=== PATIENT | female | born 1940 | race Caucasian/White ===

== ENCOUNTER → 2016-10-04 | Outpatient (CLI) | payer MEDICARE | LOC: GMAM 17:42 | PROVIDERS: ATTEND Family Medicine | DX: M25.50 Pain in unspecified joint (principal); I10 Essential (primary) hypertension; E11.9 Type 2 diabetes mellitus without complications; E78.4 Other hyperlipidemia ==

== ENCOUNTER → 2016-10-19 | Outpatient (CLI) | payer MEDICARE ==
--- NOTE | 2016-10-19 15:46 | MAM ---
EXAM DESCRIPTION: Screening Mammogram,Bilateral CLINICAL HISTORY: 76 years, Female, Screening mammogram COMPARISON: None TECHNIQUE: CC and MLO digital mammograms with computer aided detection. FINDINGS: There are scattered fibroglandular densities. There is no dominant mass nor any suspicious microcalcifications. Benign microcalcifications are present. IMPRESSION: BIRAD CATEGORY: 2 BENIGN. Recommend routine screening mammography. Electronically signed by: Azael Sylvester MD 10/19/2016 3:45 PM [employer]
== END | disposition home or self-care (01) ==
LOC: MAMMO 13:49
PROVIDERS: ATTEND Family Medicine
DX: Z12.31 Encounter for screening mammogram for malignant neoplasm of breast (principal)

== ENCOUNTER → 2016-11-16 | Outpatient (CLI) | payer MEDICARE | END | disposition home or self-care (01) | LOC: GMAM 16:30 | PROVIDERS: ATTEND Family Medicine | DX: M10.00 Idiopathic gout, unspecified site (principal) ==

== ENCOUNTER → 2017-03-07 | Outpatient (CLI) | payer MEDICARE | LOC: GMAM 17:00 | PROVIDERS: ATTEND Family Medicine | DX: M10.00 Idiopathic gout, unspecified site (principal) ==

== ENCOUNTER → 2017-03-09 | Outpatient (CLI) | payer MEDICARE | LOC: GMAM 16:40 | PROVIDERS: ATTEND Family Medicine | DX: D64.9 Anemia, unspecified (principal) ==

== ENCOUNTER 2017-05-05 14:37 | Inpatient (IN) | payer MEDICARE, OTHER ==
--- NOTE | 2017-05-05 14:50 | ED.PDOC ---
History of Present Illness - General Chief Complaint: General Stated Complaint: sob Time Seen by Provider: 05/05/17 14:49 Source: patient Exam Limitations: no limitations - History of Present Illness Initial Comments: Alee Gastelum 77 y/o female stated that she had been having gradually worsening sob for the last 4 weeks and had non productive cough and nasal congestion for the last 2 weeks .She also had exertional dyspnea with walking 6- 7 steps from her bed to the bathroom.Denies chest pains dizziness has home 02 uses it as needed.Has history of asthma.Unable to make her appointment with marine cargo specialist today her car broke down. Timing/Duration: getting worse, other - 4 weeks Severity: moderate Activities at Onset: none Possible Cause: other - asthma Improving Factors: nothing Worsening Factors: nothing Associated Symptoms: other - exertional dyspnea Respiratory Risk Factors: exposure to allergen Allergies/Adverse Reactions: Allergies NO KNOWN ALLERGY Allergy (Verified 05/05/17 14:54) Home Medications: Ambulatory Orders ALPRAZolam [Xanax] 0.25 mg PO BEDTIME 05/05/17 Aclidinium [place] [Tudorza Pressair] 400 mcg INH DAILY 05/05/17 Albuterol Sulfate [Proair Hfa] 108 mcg INH Q4H 05/05/17 Allopurinol [Zyloprim] 100 mg PO DAILY 05/05/17 Atorvastatin Calcium [Lipitor] 20 mg PO BEDTIME 05/05/17 Celecoxib 200 mg PO DAILY 05/05/17 Chlorthalidone 25 mg PO DAILY 05/05/17 Cholecalciferol [Vitamin D3] 2,000 unit PO DAILY 05/05/17 Citalopram Hydrobromide 20 mg PO DAILY 05/05/17 Fluticasone/Salmeterol 500/50 [Advair Diskus] 1 puff INH BID 05/05/17 Ipratropium [place] Nebs [Atrovent NEBS] 0.5 mg INH QID PRN 05/05/17 Lisinopril 20 mg PO DAILY 05/05/17 Pregabalin [Lyrica] 150 mg PO BID 05/05/17 Vitamins W/ Iron Carb [One A Day Womens 28-0.8-235 mg] 1 cap PO DAILY 05/05/17 Umeclidinium [place] [Incruse Ellipta] 62.5 mcg INH DAILY 05/05/17 metFORMIN HCL [Glucophage] 1,000 mg PO BID 05/05/17 traZODone HCL [Desyrel] 100 mg PO BEDTIME 05/05/17 Review of Systems - Review of Systems Constitutional: States: no symptoms reported EENTM: States: see HPI Respiratory: States: see HPI Cardiology: States: see HPI Gastrointestinal/Abdominal: States: no symptoms reported Genitourinary: States: no symptoms reported Musculoskeletal: States: neck pain - chronic Past Medical History (General) - Patient Medical History Hx Asthma: Yes Hx Congestive Heart Failure: Yes Hx Other PMH: Yes - 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 Surgical History: tonsillectomy, other - hysterectomy,c-spine - Social History Hx Tobacco Use: Yes - quit 20 years ago Hx Physical Abuse: No Hx Emotional Abuse: No Hx Suspected Abuse: No - Activities of Daily Living Patient Lives Alone: No - sister Grooming Ability: Independent Eating (Feeding) Ability: Independent Toileting Ability: Independent - Female History Patient is a Female of Child Bearing Age (10 -59 yrs old): No - postmenopausal Family Medical History - Family History Mother Family History: No Known Living Status: Hx Family Congestive Heart Failure: Yes - dad Hx Family;Other: parents/sister-pulmonary tb-treated Physical Exam - Physical Exam General Appearance: Alert, Anxious, No apparent distress Eyes, Ears, Nose, Throat Exam: PERRL/EOMI, normal ENT inspection, pharynx normal Neck: non-tender, supple Respiratory: decreased breath sounds, rales - bases Cardiovascular/Chest: regular rate, rhythm, no gallop, no murmur Peripheral Pulses: radial,right: 1+, radial,left: 1+ Gastrointestinal/Abdominal: non tender, soft, no organomegaly Extremity: non-tender, no pedal edema, no calf tenderness Neurologic: alert, oriented x 3 Skin Exam: normal color, warm/dry Lymphatic: no adenopathy Progress - Progress Progress: 05/05/17 17:32 Vital Signs - 8 hr 05/05/17 05/05/17 05/05/17 14:40 14:45 15:35 Temperature 99.4 F Pulse Rate [ 72 64 Apical] Respiratory 28 H 28 H 28 H Rate Blood Pressure 172/83 156/96 [Left Arm] O2 Sat by Pulse 92 L 95 Oximetry 05/05/17 05/05/17 05/05/17 15:40 16:30 16:35 Temperature Pulse Rate [ 93 H 61 65 Apical] Respiratory 22 22 22 Rate Blood Pressure 113/65 126/79 126/79 [Left Arm] O2 Sat by Pulse 93 L 96 96 Oximetry 05/05/17 17:06 Temperature Pulse Rate [ 67 Apical] Respiratory 22 Rate Blood Pressure 155/52 [Left Arm] O2 Sat by Pulse 97 Oximetry - Results/Orders Results/Orders: Laboratory Tests 05/05/17 05/05/17 05/05/17 13:07 13:07 13:07 WBC 6.4 RBC 3.49 L Hgb 9.4 L Hct 29.7 L MCV 85.1 MCH 26.9 L MCHC 31.6 L RDW 17.0 H Plt Count 257 MPV 9.9 Absolute Neuts (auto) 4.60 Absolute Lymphs (auto) 1.10 Absolute Monos (auto) 0.40 Absolute Eos (auto) 0.20 Absolute Basos (auto) 0.00 Neutrophils % 71.7 Lymphocytes % 17.4 L Monocytes % 6.5 Eosinophils % 3.8 Basophils % 0.6 D-Dimer, Quantitative 292 H* Sodium 139 Potassium 4.5 Chloride 102 Carbon Dioxide 28 Anion Gap 13.5 BUN 16 Creatinine 1.07 BUN/Creatinine Ratio 15.0 Random Glucose 159 H Serum Osmolality 282.1 Calcium 9.1 Total Bilirubin 0.5 AST 19 ALT < 8 L Alkaline Phosphatase 63 Troponin I B-Natriuretic Peptide 499.0 H* Serum Total Protein 7.0 Albumin 3.5 Globulin 3.5 Albumin/Globulin Ratio 1.0 L Urine Color Urine Appearance Urine pH Ur Specific [place] Urine Protein Urine Glucose (UA) Urine Ketones Urine Blood Urine Nitrite Urine Bilirubin Urine Urobilinogen Ur Leukocyte Esterase Urine RBC Urine WBC Ur Epithelial Cells Urine Bacteria 05/05/17 05/05/17 13:07 15:20 WBC RBC Hgb Hct MCV MCH MCHC RDW Plt Count MPV Absolute Neuts (auto) Absolute Lymphs (auto) Absolute Monos (auto) Absolute Eos (auto) Absolute Basos (auto) Neutrophils % Lymphocytes % Monocytes % Eosinophils % Basophils % D-Dimer, Quantitative Sodium Potassium Chloride Carbon Dioxide Anion Gap BUN Creatinine BUN/Creatinine Ratio Random Glucose Serum Osmolality Calcium Total Bilirubin AST ALT Alkaline Phosphatase Troponin I 0.02 B-Natriuretic Peptide Serum Total Protein Albumin Globulin Albumin/Globulin Ratio Urine Color Yellow Urine Appearance Clear Urine pH 7.5 Ur Specific [place] 1.020 Urine Protein 30 Urine Glucose (UA) 100 H Urine Ketones Negative Urine Blood Trace-intact H Urine Nitrite Negative Urine Bilirubin Negative Urine Urobilinogen 0.2 Ur Leukocyte Esterase Negative Urine RBC 0-1 Urine WBC 1-3 Ur Epithelial Cells 1-3 Urine Bacteria Rare Laboratory Tests 05/05/17 05/05/17 05/05/17 13:07 13:07 13:07 WBC 6.4 RBC 3.49 L Hgb 9.4 L Hct 29.7 L MCV 85.1 MCH 26.9 L MCHC 31.6 L RDW 17.0 H Plt Count 257 MPV 9.9 Absolute Neuts (auto) 4.60 Absolute Lymphs (auto) 1.10 Absolute Monos (auto) 0.40 Absolute Eos (auto) 0.20 Absolute Basos (auto) 0.00 Neutrophils % 71.7 Lymphocytes % 17.4 L Monocytes % 6.5 Eosinophils % 3.8 Basophils % 0.6 D-Dimer, Quantitative 292 H* pCO2 pO2 HCO3 ABG pH ABG O2 Saturation ABG Base Excess ABG Deoxyhemoglobin Oxyhemoglobin % Carboxyhemoglobin % Methemoglobin % Sat Calc Total Hemoglobin Sodium 139 Potassium 4.5 Chloride 102 Carbon Dioxide 28 Anion Gap 13.5 BUN 16 Creatinine 1.07 BUN/Creatinine Ratio 15.0 Random Glucose 159 H Serum Osmolality 282.1 Calcium 9.1 Total Bilirubin 0.5 AST 19 ALT < 8 L Alkaline Phosphatase 63 Troponin I B-Natriuretic Peptide 499.0 H* Serum Total Protein 7.0 Albumin 3.5 Globulin 3.5 Albumin/Globulin Ratio 1.0 L Urine Color Urine Appearance Urine pH Ur Specific [place] Urine Protein Urine Glucose (UA) Urine Ketones Urine Blood Urine Nitrite Urine Bilirubin Urine Urobilinogen Ur Leukocyte Esterase Urine RBC Urine WBC Ur Epithelial Cells Urine Bacteria 05/05/17 05/05/17 05/05/17 13:07 15:20 15:38 WBC RBC Hgb Hct MCV MCH MCHC RDW Plt Count MPV Absolute Neuts (auto) Absolute Lymphs (auto) Absolute Monos (auto) Absolute Eos (auto) Absolute Basos (auto) Neutrophils % Lymphocytes % Monocytes % Eosinophils % Basophils % D-Dimer, Quantitative pCO2 49 H pO2 61 L HCO3 27.3 ABG pH 7.370 ABG O2 Saturation 93.7 L ABG Base Excess 2.0 ABG Deoxyhemoglobin 6.2 H Oxyhemoglobin % 91.6 L Carboxyhemoglobin % 1.6 H Methemoglobin % Sat 0.6 Calc Total Hemoglobin 9.9 L Sodium Potassium Chloride Carbon Dioxide Anion Gap BUN Creatinine BUN/Creatinine Ratio Random Glucose Serum Osmolality Calcium Total Bilirubin AST ALT Alkaline Phosphatase Troponin I 0.02 B-Natriuretic Peptide Serum Total Protein Albumin Globulin Albumin/Globulin Ratio Urine Color Yellow Urine Appearance Clear Urine pH 7.5 Ur Specific [place] 1.020 Urine Protein 30 Urine Glucose (UA) 100 H Urine Ketones Negative Urine Blood Trace-intact H Urine Nitrite Negative Urine Bilirubin Negative Urine Urobilinogen 0.2 Ur Leukocyte Esterase Negative Urine RBC 0-1 Urine WBC 1-3 Ur Epithelial Cells 1-3 Urine Bacteria Rare 05/05/17 17:43 WBC RBC Hgb Hct MCV MCH MCHC RDW Plt Count MPV Absolute Neuts (auto) Absolute Lymphs (auto) Absolute Monos (auto) Absolute Eos (auto) Absolute Basos (auto) Neutrophils % Lymphocytes % Monocytes % Eosinophils % Basophils % D-Dimer, Quantitative pCO2 pO2 HCO3 ABG pH ABG O2 Saturation ABG Base Excess ABG Deoxyhemoglobin Oxyhemoglobin % Carboxyhemoglobin % Methemoglobin % Sat Calc Total Hemoglobin Sodium Potassium Chloride Carbon Dioxide Anion Gap BUN Creatinine BUN/Creatinine Ratio Random Glucose Serum Osmolality Calcium Total Bilirubin AST ALT Alkaline Phosphatase Troponin I 0.03 B-Natriuretic Peptide Serum Total Protein Albumin Globulin Albumin/Globulin Ratio Urine Color Urine Appearance Urine pH Ur Specific [place] Urine Protein Urine Glucose (UA) Urine Ketones Urine Blood Urine Nitrite Urine Bilirubin Urine Urobilinogen Ur Leukocyte Esterase Urine RBC Urine WBC Ur Epithelial Cells Urine Bacteria - EKG/XRAY/CT EKG: Sinus Comments: heart rate -69,LAD ,PAC,low qrs XRAY: chest - early basilar infiltrate Departure - Departure Clinical Impression: Hypoxemia, Dyspnea on exertion, Anemia, chronic disease Asthma with exacerbation Qualifiers: Asthma severity: unspecified severity Qualified Code(s): J45.901 - Unspecified asthma with (acute) exacerbation Respiratory failure Qualifiers: Chronicity: acute on chronic Respiratory failure complication: hypoxia Qualified Code(s): J96.21 - Acute and chronic respiratory failure with hypoxia Time of Disposition: 18:35 Disposition: Admit Patient Condition: Fair Referrals: Guilherme Simmons MD [Primary Care Provider] - 1-2 Weeks Home Medications: Ambulatory Orders ALPRAZolam [Xanax] 0.25 mg PO BEDTIME 09/14/17 Aclidinium [place] [Tudorza Pressair] 400 mcg INH DAILY 05/05/17 Albuterol Sulfate [Proair Hfa] 108 mcg INH Q4H 05/05/17 Allopurinol [Zyloprim] 100 mg PO DAILY 05/05/17 Atorvastatin Calcium [Lipitor] 20 mg PO BEDTIME 05/05/17 Celecoxib 200 mg PO DAILY 05/05/17 Chlorthalidone 25 mg PO DAILY 05/05/17 Cholecalciferol [Vitamin D3] 2,000 unit PO DAILY 05/05/17 Citalopram Hydrobromide 20 mg PO DAILY 05/05/17 Fluticasone/Salmeterol 500/50 [Advair Diskus] 1 puff INH BID 05/05/17 Ipratropium [place] Nebs [Atrovent NEBS] 0.5 mg INH QID PRN 05/05/17 Lisinopril 20 mg PO DAILY 05/05/17 Pregabalin [Lyrica] 150 mg PO BID 05/05/17 Vitamins W/ Iron Carb [One A Day Womens 28-0.8-235 mg] 1 cap PO DAILY 05/05/17 Umeclidinium [place] [Incruse Ellipta] 62.5 mcg INH DAILY 05/05/17 metFORMIN HCL [Glucophage] 1,000 mg PO BID 05/05/17 traZODone HCL [Desyrel] 100 mg PO BEDTIME 05/05/17 Decision To Admit - Decistion To Admit Decision to Admit Reason: Admit from ER Decision to Admit Date: 05/05/17 Decision to Admit Time: 18:32 - D/W Daniela Clifton -EDWARD/Hospitalist
[2017-05-05] MEDS ORDERED: IPRATROPIUM/ALBUTEROL 3 ML VIAL NEB ONE ×2 (14:53→17:35)
--- NOTE | 2017-05-05 15:28 | RAD ---
EXAM DESCRIPTION: Chest,2 Views CLINICAL HISTORY: sob COMPARISON: None TECHNIQUE: PA/lateral FINDINGS: Heart size is normal with vascularity prominent in the upper range of normal or borderline increased. Aortic calcification and tortuosity of the arch is noted. Coarsened markings in both lung bases suggests minimal basilar edema or interstitial infiltrate. No significant pleural effusions are present. Tiny amount of scarring or patchy density in the left upper lung field peripherally and in the right apex is noted. Mild degenerative changes in the dorsal spine are apparent. IMPRESSION: Normal-sized heart and coarsened vascular and parenchymal markings suggesting either early basilar infiltrate or edema without pleural effusions. Electronically signed by: Guilherme Jang MD 05/05/2017 3:27 PM CDT
[2017-05-05] MEDS: ASPIRIN (CHEWABLE) 81 MG TAB PO ONE ×2 (15:37→17:53)
[2017-05-05] MEDS ORDERED: methylPREDNISolone SODIUM SUC 125 MG/2 ML VIAL IV ONE (15:39)
[2017-05-05] MEDS ORDERED: BUMETANIDE 0.25 MG/ML VIAL IV ONE (17:33)
--- NOTE | 2017-05-05 19:32 | HP ---
SUPERVISING PHYSICIAN: Guilherme Simmons MD CHIEF COMPLAINT: Shortness of breath. HISTORY OF PRESENT ILLNESS: This is a 77-year-old female patient who has a long history of chronic obstructive pulmonary disease and asthma as well as a remote history of smoking. She has had increased shortness of breath and increased sputum production over the last 3 to 4 weeks. It had significantly worsened to the point in the last day or so that she had called her senior technical architect in [place] today to see him in office and unfortunately, her car broke down and she could not make the trip to [place]. She became so short of breath that she came to the Emergency Room. She had increased work of breathing over the last few days as well as increased sputum, but she was unable to cough sputum up very well and she has also become very weak. In the Emergency Room, her respiratory rate got as high as 28 breaths per minute. Her saturation on admission was 92% o 3 liters nasal cannula. Blood pressure was elevated at 172/83. Heart rate got up as high as 93. She received several breathing treatments in the Emergency Room as well as some steroids. Lab was obtained and her WBCs were 6.4, hemoglobin 9.4, hematocrit 29.7. Sodium 139, potassium 4.5, chloride 102, carbon dioxide 28, BUN 16, creatinine 1.07, glucose 159. BNP 499. PCO2 was elevated at 49 and PO2 was low at 61, pH 7.37, oxygen saturation 93. Urine was basically within normal limits with the exception of a small amount of trace intact urine blood and her urine glucose was 100. Chest x-ray per radiologic interpretation showed normal sized heart and coarse vascular and parenchymal markings suggesting either basilar infiltrate or edema without pleural effusions. I was called for admission to the hospital. PAST MEDICAL HISTORY: 1. Hyperlipidemia. 2. Hypertension. 3. Asthma. 4. Gout. 5. Chronic obstructive pulmonary disease. 6. Type 2 diabetes mellitus. 7. Anxiety with depression. PAST SURGICAL HISTORY: 1. Hysterectomy. 2. Hernia repair. 3. Bilateral tubal ligation. ALLERGIES: NO KNOWN DRUG ALLERGIES. SOCIAL HISTORY: She lives at [facility]. She is retired. She is . She has two children. She quit smoking in 1999 and she drinks alcohol rarely. She denies any illicit drug use. REVIEW OF SYSTEMS: GENERAL: Positive for fatigue. Negative for fever or weight changes. HEENT: Positive for sinus symptoms and sore throat due to drainage. Negative for ear pain or vision changes. RESPIRATORY: Positive for chest congestion and as per history of present illness. CARDIAC: Negative for chest pain, palpitations or tachycardia. GASTROINTESTINAL: Negative for nausea, vomiting, diarrhea, constipation or abdominal pain. GENITOURINARY: Negative for hematuria, dysuria or polyuria. SKIN: Negative for lesions or rashes. MUSCULOSKELETAL: Positive for back pain. Negative for arthralgias or myalgias. NEUROLOGIC: Negative for headache, dizziness, or seizures. PSYCHIATRIC: Positive for anxiety and depression. PHYSICAL EXAMINATION: VITAL SIGNS: Temperature 99.4. Heart rate has been as high as 93 and is now 70. Respiratory rate was as high as 28 and now 22. Blood pressure 147/85. Oxygen saturation 92%. GENERAL: This is a 77-year-old, obese female who is sitting her hospital bed. She is almost in a tripod position and she is in moderate respiratory distress. She speaks in short phrases and cannot speak in complete sentences. HEENT: Normocephalic, atraumatic. Pupils are equal and reactive. She has some clear nasal drainage. Oropharynx is clear. Oral mucous membranes are moist. NECK: Supple without mass. No discernible jugular venous distention. RESPIRATORY: Very diminished sounds throughout with some very faint expiratory wheezing. She is tachypneic at times. She has increased work of breathing. CHEST: There is equal rise and fall of the chest with inspiration and expiration. CARDIOVASCULAR: Regular rate and rhythm. ABDOMEN: Soft, rounded, nondistended, nontender. Bowel sounds are positive. EXTREMITIES: No cyanosis, clubbing or edema. SKIN: Warm and dry with no lesions or rashes noted. NEUROLOGIC: Awake, alert and oriented times three. LABORATORY: Labs and films are as per the history of present illness. Her first troponin was 0.02, second troponin was 0.03 and she had a D-dimer of 292. ASSESSMENT: 1. Acute exacerbation of chronic obstructive pulmonary disease with increase in sputum and increased work of breathing with dyspnea. 2. Mild exacerbation of congestive heart failure with BNP of 499. She has grade 1 diastolic dysfunction with a 60% ejection fraction as noted by her echocardiogram on 03/11/16. She also has negative troponins on her lab work. 3. Concerns for community acquired pneumonia as evidenced by her increased sputum production and increased dyspnea as well as the patient's age and increased work of breathing. Her chest x-ray is questionable for right lower lobe infiltrate. 4. Hypertension. 5. Hyperlipidemia. 6. Diabetes mellitus, type 2. 7. Anxiety with depression. 8. Back pain. PLAN: We will admit the patient to the hospital. I have placed her on IV steroids that will need to be titrated down at some point depending on her response. I ordered blood cultures and sputum culture and started her on Rocephin. At this point will hold on any extra IV fluids due to her cardiac history and her blood pressure and heart rate have stabilized. She has breathing treatments and I have started her home medications. I have added scheduled Mucinex. She will have lab and a chest x-ray in the morning. I have ordered aggressive pulmonary hygiene. We will monitor her heart and oxygen saturations as well as Accuchecks with sliding scale insulin as well as some Tramadol for her back pain. I ordered Protonix for ulcer prophylaxis and Lovenox for DVT prophylaxis. We will continue to monitor the patient closely and follow as needed. Dr. Simmons is the collaborating physician and available for consultation. #[id number] [facility]
[2017-05-05] MEDS ORDERED: ONDANSETRON INJ 4 MG/2 ML VIAL IV PRN (21:34)
[2017-05-05] MEDS ORDERED: GLUCAGON INJ 1 MG VIAL SUBCU PRN (21:41)
[2017-05-05] MEDS ORDERED: DEXTROSE 50% 25 GM/50 ML SYG IV PRN (21:41)
[2017-05-05] MEDS ORDERED: AZITHROMYCIN IV 500 MG in SODIUM CHLORIDE 0.9% 250ML 250 ML IVPB SCH (22:00)
[2017-05-05] MEDS ORDERED: ENOXAPARIN SODIUM 40 MG/0.4 ML SYG SUBCU SCH (22:00)
[2017-05-05] MEDS ORDERED: PANTOPRAZOLE SODIUM IV 40 MG VIAL IV SCH (22:00)
--- NOTE | 2017-05-05 22:00 | PCM.CORE ---
Physician DVT/VTE - Prophylaxis Currently: Patient already on anticoagulation therapy - Nurse DVT Assessment & Total Each Risk Factor Represents 3 Points: Age over 75 years, Medical PT with Hx of MS, CHF, Severe infection/sepsis DVT Assessment Score: 6 - 5 or more Very High Risk Treatments: Early Ambulation *, Sequential Compression Device
[2017-05-05] MEDS: IPRATROPIUM/ALBUTEROL 3 ML VIAL INH SCH (22:22)
[2017-05-05] MEDS ORDERED: methylPREDNISolone SODIUM SUC 40 MG/ML VIAL ONE (23:22)
[2017-05-05] MEDS ORDERED: SODIUM CHL 0.9% 100ML MINI-BAG 0 ML IVPB ONE (23:22)
[2017-05-05] MEDS ORDERED: SODIUM CHL 0.9% 50ML MIN-BAG+ 50 ML IVPB ONE (23:25)
[2017-05-05] MEDS: cefTRIAXone SODIUM 1 GM in SODIUM CHL 0.9% 50ML MIN-BAG+ 50 ML IVPB SCH (23:26)
[2017-05-05] MEDS: PREGABALIN 75 MG CAP PO SCH (23:26)
[2017-05-05] MEDS: IV SET AND CAP CHANGE INJ INJ SCH (23:29)
[2017-05-05] MEDS: methylPREDNISolone SODIUM SUC 125 MG/2 ML VIAL IV SCH (23:29)
[2017-05-05] MEDS: ACETAMINOPHEN 325 MG TAB PO PRN (23:53)
[2017-05-05] MEDS: ALPRAZolam 0.5 MG TAB PO PRN (23:53)
[2017-05-05] MEDS: traMADol HCL 50 MG TAB PO PRN (23:53)
[2017-05-06] MEDS ORDERED: traZODone HCL 100 MG TAB PO ONE (00:05)
[2017-05-06] MEDS: traZODone HCL 100 MG TAB PO SCH ×2 (00:07→21:20)
[2017-05-06] MEDS: IPRATROPIUM/ALBUTEROL 3 ML VIAL INH PRN ×3 (00:25→06:53)
[2017-05-06] MEDS: methylPREDNISolone SODIUM SUC 125 MG/2 ML VIAL IV SCH ×2 (03:49→08:43)
--- NOTE | 2017-05-06 06:33 | RAD ---
Procedure: XR CHEST 2 VIEWS Exam Date: 05/06/2017 Ordering Provider: JIMBO KING Clinical Indication: Pneumonia Comparison: 05/05/2017 Findings: Cardiomediastinal silhouette is stable. Focal lung consolidation: Left perihilar and bibasilar subsegmental atelectasis and/or infiltrate. Stable scarring in the left upper lobe. Pleural effusion: None Pneumothorax: None Acute bony or soft tissue abnormality: No acute osseous abnormalities. Impression: 1. Left perihilar and bibasilar subsegmental atelectasis and/or infiltrate. Electronically signed by: Arsalan Franklin MD 05/06/2017 6:31 AM CDT
[2017-05-06] MEDS: INSULIN LISPRO 100 UNITS/ML PEN SUBCU SCH ×5 (08:00→21:55)
[2017-05-06] MEDS: IPRATROPIUM/ALBUTEROL 3 ML VIAL INH SCH ×3 (08:21→15:15)
[2017-05-06] MEDS: FLUTICASONE/SALMETEROL 500/50 INH INH SCH ×2 (08:22→20:21)
[2017-05-06] MEDS: metFORMIN HCL 500 MG TAB PO SCH ×2 (08:27→18:15)
[2017-05-06] MEDS ORDERED: CITALOPRAM HBR 20 MG TAB ONE (08:29)
[2017-05-06] MEDS: CITALOPRAM HBR 20 MG TAB PO SCH (08:42)
[2017-05-06] MEDS: LISINOPRIL 10 MG TAB PO SCH (08:42)
[2017-05-06] MEDS: PREGABALIN 75 MG CAP PO SCH ×2 (08:42→21:20)
[2017-05-06] MEDS: CHLORTHALIDONE 25 MG TAB PO SCH (08:42)
[2017-05-06] MEDS: ALLOPURINOL 100 MG TAB PO SCH (08:42)
[2017-05-06] MEDS ORDERED: NON-FORMULARY MEDICATION 1 EA MIS (Umeclidinium Bromide [Incruse Ellipta] 62.5 MCG) INH SCH (09:00)
[2017-05-06] MEDS ORDERED: ACLIDINIUM BROMIDE 400 MCG INH SCH (09:00)
[2017-05-06] MEDS ORDERED: AZITHROMYCIN IV 500 MG VIAL IVPB ONE (09:14)
[2017-05-06] MEDS ORDERED: SODIUM CHLORIDE 0.9% 250ML 250 ML ONE (09:15)
[2017-05-06] MEDS: BIFIDOBACTERIUM INFANTIS 4 MG CAP PO SCH (10:09)
[2017-05-06] MEDS: AZITHROMYCIN IV 500 MG in SODIUM CHLORIDE 0.9% 250ML 250 ML IVPB SCH (10:09)
[2017-05-06] MEDS: SODIUM CHLORIDE 0.9% (FLUSH) 10 ML SYG IV PRN ×2 (10:11→22:00)
[2017-05-06] MEDS ORDERED: MAGNESIUM SULFATE PREMIX 2GM 2 GM in PREMIX BAG 1 BAG IVPB ONE (10:41)
[2017-05-06] MEDS ORDERED: KETOROLAC TROMETHAMINE INJ 30 MG/ML VIAL IV ONE (10:48)
[2017-05-06] MEDS ORDERED: KCL 20 MEQ/NS 1,000 ML IVS PRN (10:51)
[2017-05-06] MEDS: LEVALBUTEROL NEBS 1.25 MG/3 ML VIAL INH PRN ×2 (11:34→20:20)
[2017-05-06] MEDS ORDERED: MAGNESIUM SULFATE PREMIX 2GM 50 ML IVPB ONE (11:56)
[2017-05-06] MEDS ORDERED: KETOROLAC TROMETHAMINE INJ 30 MG/ML VIAL ONE (11:58)
[2017-05-06] MEDS: PANTOPRAZOLE SODIUM TAB 40 MG PO SCH (12:08)
[2017-05-06] MEDS: ALPRAZolam 0.5 MG TAB PO PRN ×2 (12:08→18:15)
[2017-05-06] MEDS: INSULIN DETEMIR 100 UNITS/ML PEN SUBCU SCH (12:09)
[2017-05-06] MEDS: traMADol HCL 50 MG TAB PO PRN (16:13)
[2017-05-06] MEDS: methylPREDNISolone SODIUM SUC 40 MG/ML VIAL IV SCH ×2 (16:13→22:00)
--- NOTE | 2017-05-06 17:09 | PN ---
DATE: 05/06/17 SUPERVISING PHYSICIAN: Guilherme Simmons M.D. SUBJECTIVE: The patient remains afebrile. She still continues to have episodes of shortness of breath although feels like she is about 10% better than when she was admitted. She is now able to talk in complete sentences. Blood sugars have been elevated secondary to corticosteroid administration. The patient remains without any complications. OBJECTIVE: VITAL SIGNS: Afebrile with T max 99.4, pulse 107, blood pressure 169 /71, respirations 20, satting 98% on nasal cannula at 3 liters. I's and O's show a negative balance of 890 with 560 in, 1450 out. Weight is 88.17 kg. CHEST: Lung sounds remain very diminished bilaterally. No wheezing is noted. There are no rhonchi or rales. She continues to have increased work of breathing with accessory muscles with some mild distress. HEART: Regular rate and rhythm. ABDOMEN: Obese but soft, non-tender. Positive bowel sounds. EXTREMITIES: No clubbing, cyanosis or edema. NEUROLOGIC: She is alert and oriented times three. LABORATORY: CBC today shows white count 6.3, hemoglobin 9.2, hematocrit 28.6, platelet count 246,000. Differential today does show a left shift. Chemistries show hyponatremia of 134 with potassium 4.8, BUN 22, creatinine 1.18 , glucoses have been elevated secondary to corticosteroid administration ranging from 284 to 356. Magnesium is 1.4. Liver functions show to remain within normal limits. MICROBIOLOGY: Blood cultures remain negative at 24 hours. Urine culture shows no growth at 24 hours. RADIOLOGY: Repeat chest x-ray two view chest today per radiology interpretation shows a left perihilar and bibasilar subsegmental atelectasis and /or infiltrate. ASSESSMENT: 1. Acute exacerbation of chronic obstructive pulmonary disease with continued mild respiratory distress. 2. Acute on chronic congestive heart failure with elevated BNP with a grade 1 diastolic dysfunction with a 60% ejection fraction as noted on last echocardiogram on 03/11/16. 3. Concerns for early pneumonia community acquired as evidenced by increasing sputum production and chest x-ray showing possible right lower lobe infiltrate. 4. Hypertension. 5. Hyperlipidemia. 6. Diabetes mellitus type 2. 7. Elevated blood sugar secondary to corticosteroid administration. 8. Anxiety and depression. 9. Chronic back pain. PLAN: The patient is showing some slow improvement. Will continue with antibiotics today to include Rocephin as well as add Azithromycin for the concern for developing community-acquired pneumonia. She will remain on aggressive pulmonary hygiene with bronchodilators and Solu-Medrol. Will titrate her Solu-Medrol down to 40 every 6 hours for 4 more doses. Her blood sugars remain elevated secondary to corticosteroid administration, therefore will continue with sliding scale and add some Levemir as well as some a.c. short -acting coverage. Will plan to repeat lab studies and do x-ray in the morning. Continue to monitor the patient until discharge. [facility][id number] [facility]
[2017-05-06] MEDS: ACETAMINOPHEN 325 MG TAB PO PRN (18:15)
[2017-05-06] MEDS ORDERED: MORPHINE SULFATE INJ 10 MG/ML VIAL IV ONE (18:59)
[2017-05-06] MEDS ORDERED: SODIUM CHL 0.9% 50ML MIN-BAG+ 50 ML IVPB ONE (20:55)
[2017-05-06] MEDS ORDERED: cefTRIAXone SODIUM 1 GM VIAL ONE (20:56)
[2017-05-06] MEDS: ATORVASTATIN 20 MG TAB PO SCH (21:20)
[2017-05-06] MEDS: ENOXAPARIN SODIUM 40 MG/0.4 ML SYG SUBCU SCH (21:20)
[2017-05-06] MEDS: cefTRIAXone SODIUM 1 GM in SODIUM CHL 0.9% 50ML MIN-BAG+ 50 ML IVPB SCH (22:00)
--- NOTE | 2017-05-06 22:27 | CT ---
EXAM DESCRIPTION: CTA Chest CLINICAL HISTORY: SOB, Tachy, rt side chest wall pain, abnm D-dimer COMPARISON: Chest radiograph same day TECHNIQUE: Axial CT images of the chest were acquired after the administration of intravenous contrast. Coronal and sagittal reconstructions were obtained. 3-D postprocessing was acquired at an independent workstation. This exam was performed according to our departmental dose-optimization program which includes use of Automated Exposure Control, adjustment of the mA and/or kV according to patient size and/or use of iterative reconstruction technique. FINDINGS: Neck base: Unremarkable. Mediastinum: Unremarkable. Lymph Nodes: No lymphadenopathy. Heart and pericardium: Normal heart size. Coronary artery calcifications. Aorta: Ectasia of the ascending thoracic aorta measuring 3.8 cm. Mild calcific atherosclerosis. Pulmonary Artery: The pulmonary trunk and bilateral pulmonary arteries are enlarged however demonstrating no evidence of intraluminal thrombus. There is limited evaluation of the smaller branch vessels secondary to motion. Central Airways: Patent. Pleura: No pneumothorax or pleural effusion. Lungs: Right apical scarring with a calcified granuloma. Scattered mild emphysema. Scattered calcified granulomas within both lungs. Linear scarring or atelectasis at the right lung base. 8 mm spiculated nodule or scar within the right lower lobe image 64 series 301. Spiculated subsolid nodule within the right lower lobe image 51. There is upper lobe predominant bronchiectasis. Left apical scarring. 2 mm pulmonary nodule within the lingula, image 31. Focal atelectasis of the inferior lingula as well as the left lung base Upper abdomen: The partially visualized left adrenal nodule measuring 14 mm. Bones and soft tissues: Old fracture deformity of the right scapula. Multiple old right-sided rib fractures. IMPRESSION: No pulmonary embolism. There is enlargement of the pulmonary trunk and arteries suggestive of pulmonary arterial hypertension. Bilateral pulmonary nodules, the most concerning being an 8 mm spiculated nodule or scar within the right lower lobe. According to Fleischner guidelines for multiple pulmonary nodules, follow-up is recommended at 3-6 months and then at 18-24 months if no change. Scattered atelectasis and scarring with a background of emphysema. Partially visualized left adrenal nodule. Ectatic ascending aorta measuring 3.8 cm. Electronically signed by: Alejandro Rolle MD 05/06/2017 10:25 PM CDT
[2017-05-06] MEDS: LEVALBUTEROL NEBS 1.25 MG/3 ML VIAL NEB SCH (23:29)
[2017-05-07] MEDS: ALPRAZolam 0.5 MG TAB PO PRN ×2 (00:10→21:29)
[2017-05-07] MEDS: methylPREDNISolone SODIUM SUC 40 MG/ML VIAL IV SCH ×3 (05:30→21:30)
[2017-05-07] MEDS: PANTOPRAZOLE SODIUM TAB 40 MG PO SCH (05:58)
[2017-05-07] MEDS ORDERED: SODIUM CHLORIDE 0.9% 1000ML 1,000 ML IVS PRN (07:13)
--- NOTE | 2017-05-07 07:31 | RAD ---
Procedure: XR CHEST 2 VIEWS Exam Date: 05/07/2017 Ordering Provider: Gutierrez Omer NP Clinical Indication: copd Comparison: 05/06/2017 Findings: Cardiomediastinal silhouette is stable. Focal lung consolidation: No focal lung consolidation. Stable scarring in the left upper lobe. COPD/emphysema. Pleural effusion: None Pneumothorax: None Acute bony or soft tissue abnormality: No acute osseous abnormalities. Impression: 1. No acute abnormalities in the chest. Electronically signed by: Arsalan Franklin MD 05/07/2017 7:29 AM CDT
[2017-05-07] MEDS: INSULIN LISPRO 100 UNITS/ML PEN SUBCU SCH ×7 (07:49→21:31)
[2017-05-07] MEDS: metFORMIN HCL 500 MG TAB PO SCH ×2 (07:49→17:21)
[2017-05-07] MEDS ORDERED: SODIUM CHLORIDE 0.9% 250ML 250 ML ONE (08:53)
[2017-05-07] MEDS ORDERED: AZITHROMYCIN IV 500 MG VIAL IVPB ONE (08:53)
[2017-05-07] MEDS: FLUTICASONE/SALMETEROL 500/50 INH INH SCH ×2 (08:57→20:10)
[2017-05-07] MEDS: LEVALBUTEROL NEBS 1.25 MG/3 ML VIAL NEB SCH ×2 (08:57→16:14)
[2017-05-07] MEDS: ALLOPURINOL 100 MG TAB PO SCH (09:12)
[2017-05-07] MEDS: LISINOPRIL 10 MG TAB PO SCH (09:12)
[2017-05-07] MEDS: AZITHROMYCIN IV 500 MG in SODIUM CHLORIDE 0.9% 250ML 250 ML IVPB SCH (09:12)
[2017-05-07] MEDS: CHLORTHALIDONE 25 MG TAB PO SCH (09:12)
[2017-05-07] MEDS: CITALOPRAM HBR 20 MG TAB PO SCH (09:12)
[2017-05-07] MEDS: PREGABALIN 75 MG CAP PO SCH ×2 (09:12→21:30)
[2017-05-07] MEDS: BIFIDOBACTERIUM INFANTIS 4 MG CAP PO SCH (09:13)
[2017-05-07] MEDS: INSULIN DETEMIR 100 UNITS/ML PEN SUBCU SCH (09:13)
[2017-05-07] MEDS: CELECOXIB 100 MG CAP PO SCH (09:25)
[2017-05-07] MEDS: LEVALBUTEROL NEBS 1.25 MG/3 ML VIAL INH PRN ×2 (10:31→19:36)
--- NOTE | 2017-05-07 11:56 | PN ---
DATE: 05/07/17 SUPERVISING PHYSICIAN: Guilherme Simmons M.D. SUBJECTIVE: Yesterday, the patient had a little run of tachycardia secondary to her DuoNeb treatments. Highest rate noted was 140s to 150s. She also had some associated right sided chest discomfort and increasing shortness of breath with the episode. She was changed to Xopenex shortly after and a CT of the chest was completed as well as initial cardiac enzymes. She was without any evidence of any PE. She did show improvement in her heart rate after transitioning to Xopenex and has had no additional chest discomfort. She remains afebrile. OBJECTIVE: VITAL SIGNS: Temperature 98.0, pulse 68, blood pressure 143/81, respirations 22, satting 97% on nasal cannula at 2 liters at rest. I's and O's show a negative balance of 80 with 970 in, 1050 out. Weight is 88.1 kg. CHEST : Lungs remain diminished but improved from previous days. Continue to be diminished towards the mid lung vasquez towards the bases with just very faint expiratory wheeze. The patient is using minimal accessory muscles compared to previous days. She is able to talk in full sentences. HEART: Slightly irregular rate and rhythm. ABDOMEN: Obese but soft, non-tender. Positive bowel sounds. EXTREMITIES: No clubbing, cyanosis or edema. NEUROLOGIC: She is alert and oriented times three. LABORATORY: CBC today shows leukocytosis but she has been on high dose corticosteroids and it is 13,400 with hemoglobin 8.7 and hematocrit of 28.2 with platelet count 259,000. Differential does show a left shift. Chemistries show sodium 134, potassium is up to 5.7, carbon dioxide is at 29 with BUN showing some slight elevation of 33 with creatinine of 1.46, calcium 9.3, blood sugars have been 189 to 293. Cardiac enzymes last night showed troponin less than 0.02 with an elevated CPK of 250. Today, CPK is showing some improvement, it is down to 244. CK-MB percentage is up to 4.59 with troponin being elevated at 0.17 with an elevation of her BNP at 774. MICROBIOLOGY: Blood cultures remain negative at 24 hours. Urine culture shows no growth at 24 hours. RADIOLOGY: She had a CT of the chest last night and per radiology interpretation there was no pulmonary embolism. There was note of enlargement of the pulmonary trunk and arteries suggestive of pulmonary arterial hypertension. There was note of bilateral pulmonary nodules most concerning being an 8 mm spiculated nodule or scar within the right lower lobe requiring continued followup. Chest x-ray two view this morning per radiology interpretation showed stable scarring of the left upper lobe with no focal lung consolidations with radiology reporting no acute abnormality seen on the two view chest film. ASSESSMENT: 1. Acute exacerbation of chronic obstructive pulmonary disease showing improvement with corticosteroids and bronchial hygiene. 2. Acute on chronic congestive heart failure with an elevated BNP with a grade 1 diastolic dysfunction with 60% ejection fraction noted on last echocardiogram on 03/11/16 with an increased BNP today. 3. Continued concerns for early pneumonia community acquired as evidenced by increase in sputum production and a right lower lobe infiltrate. 4. Episode of chest pains with tachycardic rhythm secondary to DuoNeb breathing treatments showing some elevation of troponin which is more likely stress induced with the patient now without any chest pains and a controlled heart rate after being transitioned to Xopenex. 5. Electrolyte imbalance with hyperkalemia and hyponatremia requiring ongoing management with IV fluids. 6. Hypertension. 7. Hyperlipidemia. 8. Diabetes mellitus type 2. 9. Microcytic hypochromic anemia requiring close monitoring likely secondary to chronic illness with no evidence of acute loss. 10. Persistent elevated blood sugar secondary to corticosteroid administration. 11. Diabetes mellitus type 2. 12. Anxiety and depression. 13. Chronic back pain. PLAN: This morning, the patient is slightly improved in regards to her respiratory effort. She did normalize her heart rate last night after transitioning to Xopenex with continued Xopenex breathing treatments p.r.n. She remains on steroids. She remains very restricted. Will continue to taper those down as appropriate. Given that she has shown a decrease in her H&H, will repeat laboratory studies in the morning as well as get occult bloods of stool. She will remain on antibiotics to include Rocephin and Azithromycin. Will continue to closely monitor her cardiac output and I's and O's. After the fluids are completed this morning, will saline lock as she is starting to have good adequate p.o. intake as well as showing an increase in her potassium after IV replacement. Will repeat laboratory studies in the morning as well as check x-ray. Anticipate at least an additional 24 to 48 hours of aggressive care in regards to her ongoing shortness of breath and IV antibiotic therapy. Until discharge, will continue to monitor and treat appropriately. #[id number] [facility]
[2017-05-07] MEDS: SODIUM CHLORIDE 0.9% (FLUSH) 10 ML SYG IV PRN ×2 (19:00→21:55)
[2017-05-07] MEDS ORDERED: cefTRIAXone SODIUM 1 GM VIAL ONE (19:13)
[2017-05-07] MEDS ORDERED: SODIUM CHL 0.9% 50ML MIN-BAG+ 50 ML IVPB ONE (19:13)
[2017-05-07] MEDS ORDERED: methylPREDNISolone SODIUM SUC 40 MG/ML VIAL ONE (19:14)
[2017-05-07] MEDS: cefTRIAXone SODIUM 1 GM in SODIUM CHL 0.9% 50ML MIN-BAG+ 50 ML IVPB SCH (21:25)
[2017-05-07] MEDS: traZODone HCL 100 MG TAB PO SCH (21:28)
[2017-05-07] MEDS: ATORVASTATIN 20 MG TAB PO SCH (21:28)
[2017-05-07] MEDS: ENOXAPARIN SODIUM 40 MG/0.4 ML SYG SUBCU SCH (21:29)
[2017-05-07] MEDS: traMADol HCL 50 MG TAB PO PRN (21:29)
[2017-05-07] MEDS: SODIUM CHLORIDE 0.9% (FLUSH) 10 ML SYG IV SCH (21:30)
[2017-05-08] MEDS: PANTOPRAZOLE SODIUM TAB 40 MG PO SCH (06:53)
[2017-05-08] MEDS ORDERED: SODIUM CHLORIDE 0.9% 250ML 250 ML ONE (07:46)
[2017-05-08] MEDS ORDERED: AZITHROMYCIN IV 500 MG VIAL IVPB ONE (07:48)
[2017-05-08] MEDS: INSULIN LISPRO 100 UNITS/ML PEN SUBCU SCH ×7 (07:58→21:35)
[2017-05-08] MEDS: BIFIDOBACTERIUM INFANTIS 4 MG CAP PO SCH (08:01)
[2017-05-08] MEDS: metFORMIN HCL 500 MG TAB PO SCH ×2 (08:01→16:46)
[2017-05-08] MEDS: PREGABALIN 75 MG CAP PO SCH ×2 (08:01→20:32)
[2017-05-08] MEDS: ALLOPURINOL 100 MG TAB PO SCH (08:01)
[2017-05-08] MEDS: CELECOXIB 100 MG CAP PO SCH (08:02)
[2017-05-08] MEDS: INSULIN DETEMIR 100 UNITS/ML PEN SUBCU SCH (08:02)
[2017-05-08] MEDS: LISINOPRIL 10 MG TAB PO SCH (08:02)
[2017-05-08] MEDS: CITALOPRAM HBR 20 MG TAB PO SCH (08:02)
[2017-05-08] MEDS: CHLORTHALIDONE 25 MG TAB PO SCH (08:02)
[2017-05-08] MEDS: SODIUM CHLORIDE 0.9% (FLUSH) 10 ML SYG IV SCH ×2 (08:03→20:32)
[2017-05-08] MEDS: LEVALBUTEROL NEBS 1.25 MG/3 ML VIAL NEB SCH ×3 (08:12→15:54)
[2017-05-08] MEDS: FLUTICASONE/SALMETEROL 500/50 INH INH SCH ×2 (08:12→19:55)
[2017-05-08] MEDS: AZITHROMYCIN IV 500 MG in SODIUM CHLORIDE 0.9% 250ML 250 ML IVPB SCH (09:41)
[2017-05-08] MEDS: methylPREDNISolone SODIUM SUC 40 MG/ML VIAL IV SCH (09:41)
[2017-05-08] MEDS: LEVALBUTEROL NEBS 1.25 MG/3 ML VIAL INH PRN (10:24)
[2017-05-08] MEDS: methylPREDNISolone SODIUM SUC 125 MG/2 ML VIAL IV SCH ×2 (13:46→18:09)
--- NOTE | 2017-05-08 16:50 | PN ---
DATE: 05/08/17 SUPERVISING PHYSICIAN: Guilherme Simmons M.D. SUBJECTIVE: The patient has no longer had any additional tachycardic events. She has had no chest pains. She does get severely short of breath with any exertional effort. This morning she just went from the bedside commode to the chair requiring supplemental oxygen and additional breathing treatments. I attempted to decrease her Solu-Medrol dosing yesterday, however the patient continues to be refractory to treatment and thus would probably benefit from additional increase in steroids again. I talked to the patient about this response and she understands that she most likely will need to wear oxygen 24/7 for a while until she completely gets over this episode. OBJECTIVE: VITAL SIGNS: T max 98.5, pulse 92, blood pressure 152/78, respirations 18, satting 98% on nasal cannula at rest, but shows significant respiratory distress with any exertional effort on nasal cannula. CHEST: Lung sounds still remain diminished but the right more so than the left with some notable expiratory wheezing on the right. HEART: Regular rate and rhythm. ABDOMEN: Soft, non-tender. Positive bowel sounds. She did have 1 bowel movement. EXTREMITIES: No clubbing, cyanosis or edema. NEUROLOGIC: She is alert and oriented times three. LABORATORY: White count persists at 13,500 with hemoglobin 8.7, hematocrit 27.8, platelet count 263,000. Differential continues to show a left shift. Chemistries show normalized electrolytes with BUN 39, creatinine1 .33, glucose 102 to 181, magnesium 1.8. Troponin remains elevated but is returning to normal baseline status at 0.11 as well as CPK and CK-MB. MICROBIOLOGY: Blood cultures remain negative at 48 hours. Urine culture shows no growth at 48 hours. Sputum culture as well is normal antonella at 24 hours. RADIOLOGY: Chest x-ray will be repeated in the morning. ASSESSMENT: 1. Acute exacerbation of chronic obstructive pulmonary disease requiring aggressive ongoing pulmonary hygiene with IV corticosteroids and aggressive pulmonary hygiene. 2. Acute on chronic congestive heart failure with elevated BNP with a grade 1 diastolic dysfunction with 60% ejection fraction noted on her last echocardiogram on 03/11/16 with an increased BNP on current admission. 3. Concerns for pneumonia community acquired right lower lobe with a right lower lobe infiltrate noted on radiographic studies. 4. Chest pains secondary to DuoNeb treatments resulting in a tachycardia rhythm and elevation of troponin with the patient transitioned to Xopenex and showing good improvements with troponin returning to baseline and the patient no longer having any episodes of chest pains or tachycardia events. 5. Electrolytes imbalance including hypokalemia and hyponatremia, improving with IV fluids. 6. Hypertension. 7. Hyperlipidemia. 8. Diabetes mellitus type 2. 9. Microcytic hyperchromic anemia likely secondary to chronic illness showing a stable H&H with no current acute blood loss possibly exacerbating some of her COPD symptoms. 10. Persistent elevated blood sugar secondary to corticosteroid administration. 11. Anxiety and depression. 12. Chronic back pain. 13. Persistent leukocytosis likely secondary to corticosteroid administration. PLAN: The patient, as long as she remains at rest, is showing improvements, but again is starting to show some more increased wheezing, therefore will reinitiate corticosteroids at 60 mg every 6 hours for an additional 24 hours as she is unable to tolerate a taper at this time. Will continue with aggressive pulmonary hygiene and Xopenex treatments. She remains on parenteral antibiotics with Rocephin and Azithromycin. The patient remains hep-locked at this point and requires oxygen. Will continue with close monitoring of her fluid status and plan to repeat laboratory studies in the morning as well as an x-ray. Again, the patient is showing improvement but very slow and is refractory at times, especially coming off steroid taper and is able to only do minimal exertional efforts, therefore an additional 48 hours of aggressive treatment is required. Will continue with treatment at this point and monitor closely until discharge. #[id number] [facility]
[2017-05-08] MEDS: IPRATROPIUM/ALBUTEROL 3 ML VIAL INH PRN (19:55)
[2017-05-08] MEDS ORDERED: SODIUM CHL 0.9% 50ML MIN-BAG+ 50 ML IVPB ONE (20:04)
[2017-05-08] MEDS ORDERED: cefTRIAXone SODIUM 1 GM VIAL ONE (20:04)
[2017-05-08] MEDS: traZODone HCL 100 MG TAB PO SCH (20:31)
[2017-05-08] MEDS: ATORVASTATIN 20 MG TAB PO SCH (20:31)
[2017-05-08] MEDS: ENOXAPARIN SODIUM 40 MG/0.4 ML SYG SUBCU SCH (20:32)
[2017-05-08] MEDS: ALPRAZolam 0.5 MG TAB PO PRN (21:39)
[2017-05-08] MEDS: SODIUM CHLORIDE 0.9% (FLUSH) 10 ML SYG IV PRN (21:44)
[2017-05-08] MEDS: cefTRIAXone SODIUM 1 GM in SODIUM CHL 0.9% 50ML MIN-BAG+ 50 ML IVPB SCH (21:45)
[2017-05-08] MEDS: IV SET AND CAP CHANGE INJ INJ SCH (21:46)
[2017-05-09] MEDS: LEVALBUTEROL NEBS 1.25 MG/3 ML VIAL NEB SCH ×3 (00:05→17:42)
[2017-05-09] MEDS: methylPREDNISolone SODIUM SUC 125 MG/2 ML VIAL IV SCH ×4 (01:24→19:57)
[2017-05-09] MEDS: SODIUM CHLORIDE 0.9% (FLUSH) 10 ML SYG IV PRN ×2 (01:24→06:27)
[2017-05-09] MEDS: PANTOPRAZOLE SODIUM TAB 40 MG PO SCH (05:51)
--- NOTE | 2017-05-09 06:52 | RAD ---
Procedure: XR CHEST 2 VIEWS Exam Date: 05/09/2017 Ordering Provider: Gutierrez Omer NP Clinical Indication: copd exacerbation Comparison: 05/07/2017 Findings: Cardiomediastinal silhouette is stable. Focal lung consolidation: No focal lung consolidation. COPD/emphysema. Pleural effusion: None Pneumothorax: None Acute bony or soft tissue abnormality: No acute osseous abnormalities. Impression: 1. No acute abnormalities in the chest. Electronically signed by: Arsalan Franklin MD 05/09/2017 6:51 AM CDT
[2017-05-09] MEDS ORDERED: SODIUM CHL 0.9% 50ML MIN-BAG+ 50 ML IVPB ONE ×2 (08:28→22:47)
[2017-05-09] MEDS ORDERED: cefTRIAXone SODIUM 1 GM VIAL ONE ×2 (08:29→22:48)
[2017-05-09] MEDS: LISINOPRIL 10 MG TAB PO SCH (08:30)
[2017-05-09] MEDS: INSULIN LISPRO 100 UNITS/ML PEN SUBCU SCH ×7 (08:33→21:16)
[2017-05-09] MEDS: metFORMIN HCL 500 MG TAB PO SCH ×2 (08:39→17:03)
[2017-05-09] MEDS: CHLORTHALIDONE 25 MG TAB PO SCH (08:41)
[2017-05-09] MEDS: PREGABALIN 75 MG CAP PO SCH ×2 (08:42→21:10)
[2017-05-09] MEDS: CELECOXIB 100 MG CAP PO SCH (08:42)
[2017-05-09] MEDS: ALLOPURINOL 100 MG TAB PO SCH (08:42)
[2017-05-09] MEDS: BIFIDOBACTERIUM INFANTIS 4 MG CAP PO SCH (08:43)
[2017-05-09] MEDS: INSULIN DETEMIR 100 UNITS/ML PEN SUBCU SCH (08:50)
[2017-05-09] MEDS: SODIUM CHLORIDE 0.9% (FLUSH) 10 ML SYG IV SCH ×2 (09:01→21:10)
[2017-05-09] MEDS ORDERED: SODIUM CHLORIDE 0.9% 250ML 250 ML ONE (09:03)
[2017-05-09] MEDS ORDERED: AZITHROMYCIN IV 500 MG VIAL IVPB ONE (09:03)
[2017-05-09] MEDS: CITALOPRAM HBR 20 MG TAB PO SCH (09:03)
[2017-05-09] MEDS: AZITHROMYCIN IV 500 MG in SODIUM CHLORIDE 0.9% 250ML 250 ML IVPB SCH (09:05)
[2017-05-09] MEDS: FLUTICASONE/SALMETEROL 500/50 INH INH SCH ×2 (09:12→21:02)
[2017-05-09] MEDS ORDERED: FLUCONAZOLE 150 MG TAB PO ONE (11:09)
[2017-05-09] MEDS ORDERED: FLUCONAZOLE 150 MG TAB ONE (12:11)
[2017-05-09] MEDS: LEVALBUTEROL NEBS 1.25 MG/3 ML VIAL INH PRN ×2 (13:10→22:44)
[2017-05-09] MEDS: NYSTATIN POWDER 15GM BTTL TOP SCH ×3 (14:07→21:14)
--- NOTE | 2017-05-09 19:51 | PN ---
DATE: 05/09/17 SUPERVISING PHYSICIAN: Alejandro Spears M.D. SUBJECTIVE: The patient feels a little bit better today compared to admission, probably 20% or 30% within the last 2 days after increasing her steroids once again. She does remain significantly short of breath with an additional effort. She remains afebrile. OBJECTIVE: VITAL SIGNS: T max 98.5, pulse 73, blood pressure 158/82, respirations 18 satting 98% on nasal cannula at 2 liters at rest. I's and O's show a negative balance of 1320 with 1130 in, 2450 out. Weight 89.3 kg. CHEST : Lungs are much better aerated today, the left is fairly clear compared to the right. The right remains with some diminished sounds towards the bases with no obvious rhonchi, rales or wheezing today. HEART: Regular rate and rhythm. ABDOMEN: Obese but soft, non-tender. Positive bowel sounds. EXTREMITIES: No clubbing, cyanosis or edema. NEUROLOGIC: She is alert and oriented times three. LABORATORY: White count now has normalized to 9.7, hemoglobin is 9.3, hematocrit 29.3, platelet count 259,000. Differential shows a continued left shift. Chemistries show normalization of her sodium and potassium, potassium is 4.7. Carbon dioxide is up today compared to previous days at 33, BUN 40, creatinine 1.36. Glucoses remain elevated between 126 and 278. MICROBIOLOGY: Sputum culture shows normal antonella at 48 hours. Blood cultures remain negative after 3 days. Urine culture showed no growth at 48 hours. RADIOLOGY: Repeat chest x-ray today 2 view per radiology interpretation showed no acute abnormalities in the chest. ASSESSMENT: 1. Acute exacerbation of chronic obstructive pulmonary disease refractory to treatment requiring continued large dose of IV corticosteroids and aggressive pulmonary hygiene. 2. Acute on chronic congestive heart failure with elevated BNP on admission with a grade 1 diastolic dysfunction with 60% ejection fraction noted on her last echocardiogram on 03/11/16. 3. Concerns for pneumonia community acquired on the right lower lobe with initial right lower lobe infiltrate noted on admission with the patient requiring large dose of corticosteroid and aggressive pulmonary hygiene showing slow clinical improvement. 4. Chest pains resulting from DuoNeb treatments from tachycardic rhythm with an elevation of troponin with the patient having transitioned to Xopenex and now showing normal sinus rhythm and no continued chest pains with troponin returning to baseline. 5. Electrolyte imbalance, including hypokalemia and hyponatremia, resolved after IV fluids. 6. Hypertension, stable. 7. Hyperlipidemia. 8. Diabetes mellitus type 2 with elevated blood sugar secondary to corticosteroid administration. 9. Microcytic hypochromic anemia likely secondary to chronic illness showing stable H&H. 10. Anxiety and depression. 11. Chronic back pain. 12. Persistent leukocytosis secondary to corticosteroid administration now normalized. PLAN: Will continue with large dose of corticosteroids today for an additional 4 more doses and hopefully be able to titrate those down starting tomorrow. Anticipate at least another 24 to 48 hours of hospitalization secondary to her refractory response on treatment. She is still requiring very aggressive pulmonary hygiene and ongoing monitoring and O2. At this point, she continues to have good oral intake and she remains hep-locked. Will anticipate discharging hopefully by later tomorrow or at least Tuesday as she continues to show clinical improvement and once discharged she will need close clinical followup with Dr. Simmons, her primary care provider. Until then, will continue to monitor closely and treat appropriately. #[id number] [facility]
[2017-05-09] MEDS: traZODone HCL 100 MG TAB PO SCH (21:13)
[2017-05-09] MEDS: ENOXAPARIN SODIUM 40 MG/0.4 ML SYG SUBCU SCH (21:14)
[2017-05-09] MEDS: ATORVASTATIN 20 MG TAB PO SCH (21:14)
[2017-05-09] MEDS: ALPRAZolam 0.5 MG TAB PO PRN (21:39)
[2017-05-09] MEDS: MICONAZOLE NITRATE 100 MG VAG SCH (22:50)
[2017-05-09] MEDS: cefTRIAXone SODIUM 1 GM in SODIUM CHL 0.9% 50ML MIN-BAG+ 50 ML IVPB SCH (22:50)
[2017-05-10] MEDS: LEVALBUTEROL NEBS 1.25 MG/3 ML VIAL NEB SCH ×4 (00:06→23:38)
[2017-05-10] MEDS: methylPREDNISolone SODIUM SUC 125 MG/2 ML VIAL IV SCH ×2 (01:00→07:46)
[2017-05-10] MEDS: LEVALBUTEROL NEBS 1.25 MG/3 ML VIAL INH PRN ×2 (05:41→13:20)
[2017-05-10] MEDS: PANTOPRAZOLE SODIUM TAB 40 MG PO SCH (06:00)
[2017-05-10] MEDS: INSULIN LISPRO 100 UNITS/ML PEN SUBCU SCH ×7 (07:43→21:22)
[2017-05-10] MEDS: metFORMIN HCL 500 MG TAB PO SCH ×2 (07:46→17:37)
[2017-05-10] MEDS ORDERED: AZITHROMYCIN 250 MG TAB PO SCH (09:00)
[2017-05-10] MEDS: CELECOXIB 100 MG CAP PO SCH (09:05)
[2017-05-10] MEDS: BIFIDOBACTERIUM INFANTIS 4 MG CAP PO SCH (09:05)
[2017-05-10] MEDS: PREGABALIN 75 MG CAP PO SCH ×2 (09:05→21:14)
[2017-05-10] MEDS: ALPRAZolam 0.5 MG TAB PO PRN ×2 (09:05→21:23)
[2017-05-10] MEDS: CITALOPRAM HBR 20 MG TAB PO SCH (09:05)
[2017-05-10] MEDS: CHLORTHALIDONE 25 MG TAB PO SCH (09:05)
[2017-05-10] MEDS: ALLOPURINOL 100 MG TAB PO SCH (09:05)
[2017-05-10] MEDS: LISINOPRIL 10 MG TAB PO SCH (09:05)
[2017-05-10] MEDS: INSULIN DETEMIR 100 UNITS/ML PEN SUBCU SCH (09:06)
[2017-05-10] MEDS: NYSTATIN POWDER 15GM BTTL TOP SCH ×4 (09:06→21:15)
[2017-05-10] MEDS: SODIUM CHLORIDE 0.9% (FLUSH) 10 ML SYG IV SCH ×2 (09:06→21:15)
[2017-05-10] MEDS: FLUTICASONE/SALMETEROL 500/50 INH INH SCH ×2 (09:30→20:00)
[2017-05-10] MEDS ORDERED: diltiaZEM HCL TAB 30 MG TAB PO ONE (09:42)
[2017-05-10] MEDS: diltiaZEM HCL TAB 30 MG TAB PO SCH ×2 (15:35→21:14)
--- NOTE | 2017-05-10 20:32 | PN ---
DATE: 05/10/17 SUPERVISING PHYSICIAN: Alejandro Spears M.D. SUBJECTIVE: The patient continues to make slow improvement. Today, she was actually able to ambulate approximately 50 feet and then showed desaturations into the 80s. She has had some episodes once again of her heart rate increasing but has not had any chest pains and her troponins continue to decrease to normal baseline status. We started her on low dose Cardizem in efforts to get better control of her rate with close monitoring. She remains afebrile. OBJECTIVE: VITAL SIGNS: Temperature 97.4, pulse 134, blood pressure 151/72, respirations 18, satting 96% on nasal cannula at 3.5 liters at rest. I's and O' s show a negative balance of 1252 with 1118 in, 2370 out. She has had a bowel movement today. Weight is 89.3 kg. CHEST: Lung sounds show slow improvement. Left side remains rather clear compared to the right slightly diminished to the base. Right shows some improvement in aeration but continues to be diminished, but there are no rhonchi, wheezing or rales. HEART: Regular rate and rhythm with a tachycardic rate noted on telemetry. ABDOMEN: Obese but soft, non- tender with positive bowel sounds. EXTREMITIES: No clubbing, cyanosis or edema. NEUROLOGIC: She is alert and oriented times three. LABORATORY: White count showed a slight elevation today at 11.0 with hemoglobin stable now at 9.8, hematocrit 31.3, platelet count 297,000. Differential continues to show a left shift. Chemistries show normal electrolytes with potassium 4.1, BUN 41, creatinine 1.45. Blood sugars still remain elevated ranging from 140 to 336. Serum osmolality is elevated at 296, troponin continues to return to baseline and is down to 0.06. MICROBIOLOGY: All of her blood cultures remain negative at 4 days. Urine culture showed no growth at 48 hours as well as sputum culture did show normal antonella at 48 hours. ASSESSMENT: 1. Acute exacerbation of chronic obstructive pulmonary disease refractory to treatment requiring again aggressive IV corticosteroids and pulmonary hygiene showing some improvement compared to the last several days able to tolerate the escalation of the corticosteroid levels. 2. Acute on chronic congestive heart failure with an elevated BNP on admission with a grade 1 diastolic dysfunction with 60% ejection fraction as noted on her last echocardiogram of 03/11/16. 3. Concerns remain for underlying pneumonia community acquired on the right lower lobe as there was a right infiltrate noted on admission with the patient showing slow clinical improvement with IV antibiotics as well as IV corticosteroids. 4. Chest pains secondary to DuoNeb treatments and transient tachycardic event with initial elevation of troponins with them now returning to near baseline status after being transitioned to Xopenex with once again the patient having an increase in her heart rate with tachycardia in the 130s with the patient reporting no chest pains felt to be secondary to just underlying hyperdynamic response from underlying treatment plan and acute illness having been started on low dose Cardizem in efforts to get a better control of heart rate. 5. Electrolytes imbalance, now resolved that included hypokalemia and hyponatremia. 6. Hypertension, stable. 7. Hyperlipidemia. 8. Diabetes mellitus type 2 with continued elevated blood sugar secondary to corticosteroid administration. 9. Microcytic hypochromic anemia secondary to chronic illness showing to be stable. 10. Anxiety and depression. 11. Chronic back pain. 12. Persistent leukocytosis secondary to corticosteroids showing slow normalization. PLAN: I have decreased her Solu-Medrol today to 40 every 12 hours with anticipation of hopefully being able to transition to p.o. Prednisone in the morning. She did have an ambulatory exertional study and it was noted that she was able to ambulate approximately 50 to 80 feet and then showed a desaturation into the 80s with supplemental oxygen. She does do well as long as she is not exerting herself to any degree. I think that she should be able to go home hopefully tomorrow. She does wear oxygen initially at night but will need to wear it 24/7 until she is completely improved clinically. Trying to get control of her heart rate with Cardizem 30 mg b.i.d. after talking with Dr. Simmons, her primary care provider. Has meant to start her on a beta macarena secondary to her reactive airway disease. She has not had any return of chest pains and is tolerating the rapid heart rate, but certainly will need better control which hopefully will be obtained with some Cardizem. Again, anticipate hopefully being able to discharge tomorrow. Until then, will continue to monitor and treat appropriately. #[id number] [facility]
[2017-05-10] MEDS ORDERED: SODIUM CHL 0.9% 50ML MIN-BAG+ 50 ML IVPB ONE (20:39)
[2017-05-10] MEDS ORDERED: cefTRIAXone SODIUM 1 GM VIAL ONE (20:40)
[2017-05-10] MEDS: traZODone HCL 100 MG TAB PO SCH (21:13)
[2017-05-10] MEDS: methylPREDNISolone SODIUM SUC 40 MG/ML VIAL IV SCH (21:14)
[2017-05-10] MEDS: ATORVASTATIN 20 MG TAB PO SCH (21:14)
[2017-05-10] MEDS: ENOXAPARIN SODIUM 40 MG/0.4 ML SYG SUBCU SCH (21:14)
[2017-05-10] MEDS: MICONAZOLE NITRATE 100 MG VAG SCH (21:15)
[2017-05-10] MEDS: cefTRIAXone SODIUM 1 GM in SODIUM CHL 0.9% 50ML MIN-BAG+ 50 ML IVPB SCH (21:48)
[2017-05-11] MEDS: diltiaZEM HCL TAB 30 MG TAB PO SCH ×4 (03:17→20:38)
[2017-05-11] MEDS: PANTOPRAZOLE SODIUM TAB 40 MG PO SCH (06:29)
[2017-05-11] MEDS: PREGABALIN 75 MG CAP PO SCH ×2 (08:00→20:38)
[2017-05-11] MEDS: metFORMIN HCL 500 MG TAB PO SCH ×2 (08:00→16:48)
[2017-05-11] MEDS: CITALOPRAM HBR 20 MG TAB PO SCH (08:00)
[2017-05-11] MEDS: BIFIDOBACTERIUM INFANTIS 4 MG CAP PO SCH (08:00)
[2017-05-11] MEDS: CHLORTHALIDONE 25 MG TAB PO SCH (08:00)
[2017-05-11] MEDS: LISINOPRIL 10 MG TAB PO SCH (08:00)
[2017-05-11] MEDS: CELECOXIB 100 MG CAP PO SCH (08:01)
[2017-05-11] MEDS: ALLOPURINOL 100 MG TAB PO SCH (08:01)
[2017-05-11] MEDS: methylPREDNISolone SODIUM SUC 40 MG/ML VIAL IV SCH ×2 (08:02→20:37)
[2017-05-11] MEDS: INSULIN DETEMIR 100 UNITS/ML PEN SUBCU SCH (08:10)
[2017-05-11] MEDS: INSULIN LISPRO 100 UNITS/ML PEN SUBCU SCH ×7 (08:12→21:29)
[2017-05-11] MEDS: SODIUM CHLORIDE 0.9% (FLUSH) 10 ML SYG IV SCH ×2 (08:17→20:39)
[2017-05-11] MEDS: NYSTATIN POWDER 15GM BTTL TOP SCH ×4 (08:17→20:39)
[2017-05-11] MEDS: FLUTICASONE/SALMETEROL 500/50 INH INH SCH ×2 (08:34→19:20)
[2017-05-11] MEDS: LEVALBUTEROL NEBS 1.25 MG/3 ML VIAL NEB SCH ×3 (08:34→23:10)
[2017-05-11] MEDS: NON-FORMULARY MEDICATION 1 EA MIS (Umeclidinium Bromide [Incruse Ellipta] 62.5 MCG) INH SCH (08:34)
[2017-05-11] MEDS: ALPRAZolam 0.5 MG TAB PO PRN ×2 (13:11→20:37)
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
[2017-05-11] MEDS: traMADol HCL 50 MG TAB PO PRN ×2 (15:05→20:37)
[2017-05-11] MEDS ORDERED: diltiaZEM HCL TAB 30 MG TAB PO ONE (17:07)
[2017-05-11] MEDS: LEVALBUTEROL NEBS 1.25 MG/3 ML VIAL INH PRN (18:50)
[2017-05-11] MEDS ORDERED: SODIUM CHL 0.9% 50ML MIN-BAG+ 50 ML IVPB ONE (19:23)
[2017-05-11] MEDS ORDERED: cefTRIAXone SODIUM 1 GM VIAL ONE (19:24)
--- NOTE | 2017-05-11 20:33 | PN ---
DATE: 05/11/17 The patient persists in her inappropriate supraventricular tachycardia. We have discussed this with Dr. Ramso and he is wishing us to increase the Cardizem to 60 mg every 6 hours by mouth and continue with telemetry and close observation. The patient is describing some chest pressure symptoms similar to what she had at the time of her admission to the hospital, but her shortness of breath seems to be slightly improved. She has been resting primarily because she feels quite tired in attempting to exert herself. The inappropriate supraventricular tachycardia may need to be approached carefully with electrophysiological studies. We have opted not to try beta blockade at this time to control ventricular rate because potentially of its effect upon the reversible airway disease the patient presents with. Increasing the calcium channel is to be observed and closely observed for a period. Cardiology service wishes to wait because of the short-acting of the Adenosine. No beds are available at [place] as of 7:30 PM on the night of discharge and the patient also had the option of being transferred to [facility], but the patient does not wish to go there. At this time, she wishes to stay here until she is able to go to [place]. Continue close observation. #[id number] [facility]
[2017-05-11] MEDS: ATORVASTATIN 20 MG TAB PO SCH (20:37)
[2017-05-11] MEDS: traZODone HCL 100 MG TAB PO SCH (20:37)
[2017-05-11] MEDS: ENOXAPARIN SODIUM 40 MG/0.4 ML SYG SUBCU SCH (20:38)
[2017-05-11] MEDS: MICONAZOLE NITRATE 100 MG VAG SCH (20:39)
[2017-05-11] MEDS: IV SET AND CAP CHANGE INJ INJ SCH (21:37)
[2017-05-11] MEDS: cefTRIAXone SODIUM 1 GM in SODIUM CHL 0.9% 50ML MIN-BAG+ 50 ML IVPB SCH (21:37)
[2017-05-11] MEDS: SODIUM CHLORIDE 0.9% (FLUSH) 10 ML SYG IV PRN (21:38)
[2017-05-12] MEDS: diltiaZEM HCL TAB 30 MG TAB PO SCH ×3 (03:13→15:18)
[2017-05-12] MEDS ORDERED: SODIUM CHLORIDE 0.9% 1000ML 1,000 ML IVS PRN ×2 (04:55→05:03)
[2017-05-12] MEDS ORDERED: SODIUM CHLORIDE 0.9% 500ML 500 ML IVS ONE (05:06)
[2017-05-12] MEDS: PANTOPRAZOLE SODIUM TAB 40 MG PO SCH (06:03)
[2017-05-12] MEDS: ALLOPURINOL 100 MG TAB PO SCH (08:13)
[2017-05-12] MEDS: LISINOPRIL 10 MG TAB PO SCH (08:13)
[2017-05-12] MEDS: metFORMIN HCL 500 MG TAB PO SCH (08:13)
[2017-05-12] MEDS: CITALOPRAM HBR 20 MG TAB PO SCH (08:13)
[2017-05-12] MEDS: PREGABALIN 75 MG CAP PO SCH (08:13)
[2017-05-12] MEDS: methylPREDNISolone SODIUM SUC 40 MG/ML VIAL IV SCH (08:14)
[2017-05-12] MEDS: CELECOXIB 100 MG CAP PO SCH (08:14)
[2017-05-12] MEDS: BIFIDOBACTERIUM INFANTIS 4 MG CAP PO SCH (08:14)
[2017-05-12] MEDS: CHLORTHALIDONE 25 MG TAB PO SCH (08:14)
[2017-05-12] MEDS: SODIUM CHLORIDE 0.9% (FLUSH) 10 ML SYG IV SCH (08:15)
[2017-05-12] MEDS: INSULIN LISPRO 100 UNITS/ML PEN SUBCU SCH ×4 (08:19→12:13)
[2017-05-12] MEDS: INSULIN DETEMIR 100 UNITS/ML PEN SUBCU SCH (08:22)
[2017-05-12] MEDS: traMADol HCL 50 MG TAB PO PRN (08:22)
[2017-05-12] MEDS: NYSTATIN POWDER 15GM BTTL TOP SCH (08:23)
[2017-05-12] MEDS: NON-FORMULARY MEDICATION 1 EA MIS (Umeclidinium Bromide [Incruse Ellipta] 62.5 MCG) INH SCH (08:42)
[2017-05-12] MEDS: LEVALBUTEROL NEBS 1.25 MG/3 ML VIAL NEB SCH (08:42)
[2017-05-12] MEDS: FLUTICASONE/SALMETEROL 500/50 INH INH SCH (08:42)
[2017-05-12 11:03] VITALS: O2SAT 97
[2017-05-12] MEDS: ALPRAZolam 0.5 MG TAB PO PRN ×2 (11:06→15:18)
[2017-05-12] MEDS ORDERED: diltiaZEM HCL TAB 30 MG TAB PO ONE (11:11)
[2017-05-12 14:53] VITALS: BP 123/79; TEMP 97.7
== END 2017-05-12 15:30 | disposition short-term general hospital (02) | DRG 190 ==
LOC: ER 14:37 → MS 19:31 → OBSVTOIN 19:31
PROVIDERS: ADMIT Nurse Practitioner Acute Care; ATTEND Emergency Medicine
PROC: B32TYZZ Computerized Tomography (CT Scan) of Left Pulmonary Artery using Other Contrast (ICD-10-PCS; principal; 2017-05-06)
PROC: B32SYZZ Computerized Tomography (CT Scan) of Right Pulmonary Artery using Other Contrast (ICD-10-PCS; 2017-05-06)
DX: J44.0 Chronic obstructive pulmonary disease with (acute) lower respiratory infection (principal); J18.9 Pneumonia, unspecified organism; I50.33 Acute on chronic diastolic (congestive) heart failure; J96.21 Acute and chronic respiratory failure with hypoxia; I47.1 Supraventricular tachycardia; I48.92 Unspecified atrial flutter; E87.1 Hypo-osmolality and hyponatremia; J44.1 Chronic obstructive pulmonary disease with (acute) exacerbation; I27.2 Other secondary pulmonary hypertension; T48.6X5A Adverse effect of antiasthmatics, initial encounter; Y92.230 Patient room in hospital as the place of occurrence of the external cause; E87.6 Hypokalemia; E11.65 Type 2 diabetes mellitus with hyperglycemia; D50.9 Iron deficiency anemia, unspecified; D63.8 Anemia in other chronic diseases classified elsewhere; T38.0X5A Adverse effect of glucocorticoids and synthetic analogues, initial encounter; F41.9 Anxiety disorder, unspecified; F32.9 Major depressive disorder, single episode, unspecified; G89.29 Other chronic pain; M54.9 Dorsalgia, unspecified; E78.5 Hyperlipidemia, unspecified; J45.909 Unspecified asthma, uncomplicated; M10.9 Gout, unspecified; Z87.891 Personal history of nicotine dependence; Z79.84 Long term (current) use of oral hypoglycemic drugs; Z79.899 Other long term (current) drug therapy

== ENCOUNTER → 2017-07-08 | Outpatient (CLI) | payer OTHER | LOC: GMAM 10:17 | PROVIDERS: ATTEND Family Medicine | DX: R53.83 Other fatigue (principal); I25.10 Atherosclerotic heart disease of native coronary artery without angina pectoris; I48.3 Typical atrial flutter; N18.3 Chronic kidney disease, stage 3 (moderate) ==

== ENCOUNTER → 2017-09-12 | Outpatient (CLI) | payer OTHER | END | disposition home or self-care (01) | LOC: GMAM 14:45 | PROVIDERS: ATTEND Family Medicine | DX: I48.2 Chronic atrial fibrillation (principal); E55.9 Vitamin D deficiency, unspecified; M10.00 Idiopathic gout, unspecified site ==

== ENCOUNTER 2017-12-12 15:10 | Inpatient (IN) | payer OTHER ==
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
[2017-12-12] MEDS ORDERED: SODIUM CHLORIDE 0.9% (FLUSH) 10 ML SYG IV PRN (16:05)
[2017-12-12] MEDS ORDERED: levoFLOXacin 750MG IV 750 MG in PREMIX BAG 1 BAG IVPB SCH (16:30)
[2017-12-12] MEDS: IPRATROPIUM/ALBUTEROL 3 ML VIAL INH SCH ×2 (16:40→20:09)
[2017-12-12] MEDS ORDERED: methylPREDNISolone SODIUM SUC 125 MG/2 ML VIAL IV ONE (17:05)
[2017-12-12] MEDS: IV SET AND CAP CHANGE INJ INJ SCH (17:42)
--- NOTE | 2017-12-12 18:19 | RAD ---
EXAM DESCRIPTION: Chest,1 View CLINICAL HISTORY: Pneumonia COMPARISON: May 09, 2017 FINDINGS: Cardiac silhouette is within normal limits. There is no focal parenchymal or pleural disease. There are old right rib fractures. Pacer leads project over the heart. There is atherosclerosis. IMPRESSION: No evidence of acute cardiopulmonary disease. Electronically signed by: Randy Saldaña MD 12/12/2017 6:17 PM CDT
[2017-12-12] MEDS ORDERED: SODIUM CHL 0.9% 50ML MIN-BAG+ 50 ML IVPB ONE ×2 (19:36→19:37)
[2017-12-12] MEDS ORDERED: cefTRIAXone SODIUM 1 GM VIAL ONE ×2 (19:36→19:37)
[2017-12-12] MEDS: cefTRIAXone SODIUM 1 GM in SODIUM CHL 0.9% 50ML MIN-BAG+ 50 ML IVPB SCH (19:47)
[2017-12-12] MEDS ORDERED: GLUCAGON INJ 1 MG VIAL SUBCU PRN (19:58)
[2017-12-12] MEDS ORDERED: DEXTROSE 50% 25 GM/50 ML SYG IV PRN (19:58)
[2017-12-12] MEDS: FLUTICASONE/SALMETEROL 500/50 INH INH SCH (20:15)
[2017-12-12] MEDS ORDERED: PREGABALIN 75 MG CAP ONE (20:16)
[2017-12-12] MEDS ORDERED: ALPRAZolam 0.25 MG TAB ONE (20:16)
[2017-12-12] MEDS ORDERED: APIXABAN 2.5 MG TAB PO ONE (20:16)
[2017-12-12] MEDS: traZODone HCL 100 MG TAB PO SCH (20:37)
[2017-12-12] MEDS: ATORVASTATIN 20 MG TAB PO SCH (20:38)
[2017-12-12] MEDS ORDERED: NON-FORMULARY MEDICATION 1 EA MIS (Apixaban [Eliquis] 5 MG) PO SCH (21:00)
[2017-12-12] MEDS ORDERED: NON-FORMULARY MEDICATION 1 EA MIS (Pregabalin [Lyrica] 150 MG) PO SCH (21:00)
[2017-12-12] MEDS ORDERED: ALPRAZolam 0.5 MG TAB PO SCH (21:00)
[2017-12-12] MEDS: INSULIN LISPRO 100 UNITS/ML PEN SUBCU SCH (21:18)
[2017-12-12] MEDS: metFORMIN HCL 500 MG TAB PO SCH (21:18)
[2017-12-12] MEDS: methylPREDNISolone SODIUM SUC 40 MG/ML VIAL IV SCH (23:43)
[2017-12-13] MEDS: IPRATROPIUM/ALBUTEROL 3 ML VIAL INH SCH ×7 (00:15→23:51)
[2017-12-13] MEDS: methylPREDNISolone SODIUM SUC 40 MG/ML VIAL IV SCH ×3 (05:07→18:06)
[2017-12-13] MEDS: cefTRIAXone SODIUM 1 GM in SODIUM CHL 0.9% 50ML MIN-BAG+ 50 ML IVPB SCH ×2 (06:08→18:06)
--- NOTE | 2017-12-13 07:28 | RAD ---
EXAM DESCRIPTION: Chest,2 Views CLINICAL HISTORY: Pneumonia COMPARISON: December 12, 2017 FINDINGS: A dual-lead cardiac pacemaker remains in place. The heart is at the upper limits of normal size, stable. Mediastinal contours are otherwise unremarkable. There are mural calcifications in the thoracic aorta. Coarse interstitial opacities are noted in the left lung base, stable or only slightly worse from yesterday. Question tiny left-sided effusion. Minimal interstitial prominence is also noted in the right lung base without definite right-sided effusion. No new airspace consolidation. There is no pneumothorax or acute fracture. IMPRESSION: Abnormal appearance of the lung bases as detailed above, worse on the left side with a possible small left-sided effusion. Differential considerations include edema or pneumonia. Electronically signed by: Fredis Cantu MD 12/13/2017 7:27 AM CDT
[2017-12-13] MEDS: INSULIN LISPRO 100 UNITS/ML PEN SUBCU SCH ×4 (07:58→21:23)
[2017-12-13] MEDS ORDERED: SODIUM CHLORIDE 0.9% 1000ML 1,000 ML IVS PRN (08:15)
[2017-12-13] MEDS: ALLOPURINOL 100 MG TAB PO SCH (08:53)
[2017-12-13] MEDS: PREGABALIN 75 MG CAP PO SCH ×2 (08:54→20:36)
[2017-12-13] MEDS: metFORMIN HCL 500 MG TAB PO SCH (08:54)
[2017-12-13] MEDS: CHLORTHALIDONE 25 MG TAB PO SCH (08:55)
[2017-12-13] MEDS: CITALOPRAM HBR 20 MG TAB PO SCH (08:55)
[2017-12-13] MEDS: APIXABAN 2.5 MG TAB PO SCH ×2 (08:55→20:31)
[2017-12-13] MEDS: ASPIRIN (CHEWABLE) 81 MG TAB PO SCH (08:55)
[2017-12-13] MEDS: LISINOPRIL 10 MG TAB PO SCH (08:56)
[2017-12-13] MEDS ORDERED: methylPREDNISolone SODIUM SUC 40 MG/ML VIAL IV SCH (12:00)
[2017-12-13] MEDS: FLUTICASONE/SALMETEROL 500/50 INH INH SCH ×2 (13:10→19:50)
--- NOTE | 2017-12-13 14:59 | PN ---
SUPERVISING PHYSICIAN: Alejandro Spears MD DATE: 12/13/17 SUBJECTIVE: The patient states she feels better at this time. Her shortness of breath is less, but she is still coughing up quite a bit. She did not have any difficulties overnight. OBJECTIVE: VITAL SIGNS: Blood pressure 137/70. Heart rate 63. Respiratory rate 22. Temperature 97.9. Oxygen saturation 95%. GENERAL: Ms. Maldonado is a 77-year-old female who still looks to be in a mild degree of respiratory distress. NEUROLOGIC: Alert and oriented. LUNGS: Diminished sounds, but improved from yesterday. She still has bilateral wheezing. CARDIOVASCULAR: Regular rate and rhythm. Normal S1, S2. ABDOMEN: Soft, obese. Positive bowel sounds. EXTREMITIES: Lower extremities with no significant edema. Pulses 2+. LABORATORY: Labs and films are reviewed. Chest x-ray shows left lower lobe infiltrate. Labs show improvement in white count from 15.6 to 11.8. Hemoglobin 10.3, hematocrit 31.6, platelet count 253. Chemistry shows sodium 132, potassium 4.3, chloride 90, CO2 27, BUN 21, creatinine 1.58, glucose 308, calcium 9.0. ASSESSMENT: 1. Severe sepsis secondary to left lower lobe pneumonia. 2. Acute on chronic hypoxemia with respiratory failure secondary to pneumonia as well as chronic obstructive pulmonary disease. 3. Chronic obstructive pulmonary disease exacerbation. 4. Streptococcal pharyngitis. 5. Diabetes mellitus, type 2. 6. Anemia. 7. History of atrial fibrillation with a currently controlled rate. 8. History of congestive heart failure without an acute exacerbation. PLAN: 1. At this point, we will continue her current antibiotics. Monitor cultures. They have not been resulted as of yet. I am going to reduce her steroids as she is moving more air. Also, this has affected her glucose pretty significantly, so hopefully with the reduction of steroids she will have an improvement. I'll also add a small dose of Levemir. 2. We will repeat labs as well as x-ray tomorrow. 3. I have started her on a little bit of IV fluids as well due to increase in BUN and creatinine. We will continue to monitor this and be very conservative with the fluids given her history of congestive heart failure. #[id number] [facility]
[2017-12-13] MEDS ORDERED: cefTRIAXone SODIUM 1 GM VIAL ONE (18:01)
[2017-12-13] MEDS ORDERED: SODIUM CHL 0.9% 50ML MIN-BAG+ 50 ML IVPB ONE (18:01)
[2017-12-13] MEDS ORDERED: levoFLOXacin 250MG IV 50 ML IVPB ONE (19:11)
[2017-12-13] MEDS ORDERED: HYDROcodone 5MG/APAP 325MG 1 EA TAB PO PRN (20:08)
[2017-12-13] MEDS: traZODone HCL 100 MG TAB PO SCH (20:30)
[2017-12-13] MEDS: levoFLOXacin 250MG IV 250 MG in PREMIX BAG 1 BAG IVPB SCH (20:31)
[2017-12-13] MEDS: ATORVASTATIN 20 MG TAB PO SCH (20:35)
[2017-12-13] MEDS: ALPRAZolam 0.25 MG TAB PO SCH (20:36)
[2017-12-13] MEDS ORDERED: diltiaZEM HCL TAB 30 MG TAB ONE (20:43)
[2017-12-13] MEDS: OXYBUTYNIN CL 5 MG TAB PO SCH (20:49)
[2017-12-13] MEDS ORDERED: METOPROLOL TARTRATE 50 MG TAB PO SCH (21:00)
[2017-12-13] MEDS ORDERED: NON-FORMULARY MEDICATION 1 EA MIS (Diltiazem Hcl [Diltiazem Hcl] 60 MG) PO SCH (21:00)
[2017-12-13] MEDS: INSULIN DETEMIR 100 UNITS/ML PEN SUBCU SCH (21:24)
[2017-12-14] MEDS: methylPREDNISolone SODIUM SUC 40 MG/ML VIAL IV SCH ×2 (00:17→06:05)
[2017-12-14] MEDS: IPRATROPIUM/ALBUTEROL 3 ML VIAL INH SCH ×5 (04:41→20:29)
[2017-12-14] MEDS ORDERED: cefTRIAXone SODIUM 1 GM VIAL ONE ×3 (05:08→19:21)
[2017-12-14] MEDS ORDERED: SODIUM CHL 0.9% 50ML MIN-BAG+ 50 ML IVPB ONE ×3 (05:08→19:20)
[2017-12-14] MEDS: cefTRIAXone SODIUM 1 GM in SODIUM CHL 0.9% 50ML MIN-BAG+ 50 ML IVPB SCH ×2 (06:02→16:48)
--- NOTE | 2017-12-14 07:25 | RAD ---
Procedure: XR CHEST 1 VIEW Exam Date: 12/14/2017 Ordering Provider: Gutierrez Giordano Clinical Indication: pneumonia, cough Comparison: 12/13/2017 Findings: Left subclavian pacer with leads stable in position. Cardiomediastinal silhouette is stable. Aortic calcification. Focal lung consolidation: Left basilar atelectasis and/or infiltrate. Right lung relatively clear. COPD/emphysema. Pleural effusion: None Pneumothorax: None Bones and soft tissues: Nonacute Impression: 1. Left basilar atelectasis and/or infiltrate. Electronically signed by: Arsalan Franklin MD 12/14/2017 7:24 AM CDT
[2017-12-14] MEDS: INSULIN LISPRO 100 UNITS/ML PEN SUBCU SCH ×4 (07:28→21:37)
[2017-12-14] MEDS: PREGABALIN 75 MG CAP PO SCH ×2 (08:28→20:32)
[2017-12-14] MEDS: APIXABAN 2.5 MG TAB PO SCH ×2 (08:28→20:31)
[2017-12-14] MEDS: diltiaZEM HCL TAB 30 MG TAB PO SCH ×3 (08:28→12:51)
[2017-12-14] MEDS: ALLOPURINOL 100 MG TAB PO SCH (08:28)
[2017-12-14] MEDS: CHLORTHALIDONE 25 MG TAB PO SCH (08:28)
[2017-12-14] MEDS: CITALOPRAM HBR 20 MG TAB PO SCH (08:29)
[2017-12-14] MEDS: LISINOPRIL 10 MG TAB PO SCH (08:29)
[2017-12-14] MEDS: METOPROLOL TARTRATE 50 MG TAB PO SCH ×2 (08:29→16:49)
[2017-12-14] MEDS: ASPIRIN (CHEWABLE) 81 MG TAB PO SCH (08:29)
[2017-12-14] MEDS: OXYBUTYNIN CL 5 MG TAB PO SCH ×2 (08:33→20:31)
[2017-12-14] MEDS ORDERED: INSULIN LISPRO 100 UNITS/ML PEN SUBCU ONE (09:50)
[2017-12-14] MEDS: FLUTICASONE/SALMETEROL 500/50 INH INH SCH ×2 (10:03→20:29)
--- NOTE | 2017-12-14 12:02 | PN ---
SUPERVISING PHYSICIAN: Alejandro Spears MD DATE: 12/14/17 SUBJECTIVE: The patient is lying in her hospital bed. She is asleep. She awakens easily. She complains of shortness of breath and coughing, but she continues to improve. She was worried about her blood sugars and I have reassured her we are coving those with insulin and that I have decreased her dosage of steroids. OBJECTIVE: VITAL SIGNS: Afebrile. Heart rate 94. Blood pressure 125/77. Respiratory rate 20. O2 saturation did drop to 89% on 3 liters nasal cannula, but it is now 95% on 3 liters nasal cannula. RESPIRATORY: Diminished breath sounds throughout with a few scattered rhonchi. There are a few occasional respiratory wheezes. CARDIAC: Regular rate and rhythm. GASTROINTESTINAL: Abdomen is soft, nondistended, nontender. Bowel sounds are positive. NEUROLOGIC: Awake, alert and oriented times three. LABORATORY: WBCs slightly increased from yesterday to 14,600 with hemoglobin 10 , hematocrit 30.8. Neutrophils 95.2%. Blood sugars have been running between 311 and 519. Sodium 129, potassium 4.5, chloride 88, carbon dioxide 31, BUN 34 , creatinine 1.53. Calcium 8.6. Preliminary sputum culture shows normal antonella. Preliminary blood culture shows no growth after 24 hours. Chest x-ray shows left basilar atelectasis and/or infiltrate. All other labs and films have been reviewed via the EMR. ASSESSMENT: 1. Severe sepsis secondary to left lower lobe pneumonia. 2. Acute on chronic hypoxemia with respiratory failure secondary to pneumonia as well as chronic obstructive pulmonary disease. 3. Chronic obstructive pulmonary disease exacerbation. 4. Streptococcal pharyngitis. 5. Diabetes mellitus, type 2. 6. Anemia. 7. History of atrial fibrillation with a currently controlled rate. 8. History of congestive heart failure without an acute exacerbation. PLAN: We will continue present supportive care including her current antibiotics. We will monitor her cultures. Her steroids have been reduced and she is now taking p.o. steroids. We will have to monitor her blood sugars closely have they have been quite elevated. We will check routine lab tomorrow and I will hold off a day on her x-ray. Physical therapy has been consulted. I have also encouraged frequent ambulation in the hallways as well as good pulmonary hygiene. We will continue to monitor the patient closely and follow as needed. Dr. Spears is the collaborating physician and available for consultation. #[id number] [facility]
[2017-12-14] MEDS: DIGOXIN 0.125 MG TAB PO SCH (12:09)
[2017-12-14] MEDS: predniSONE 20 MG TAB PO SCH (12:09)
[2017-12-14] MEDS ORDERED: levoFLOXacin 250MG IV 50 ML IVPB ONE (19:21)
[2017-12-14] MEDS: traZODone HCL 100 MG TAB PO SCH (20:30)
[2017-12-14] MEDS: ATORVASTATIN 20 MG TAB PO SCH (20:31)
[2017-12-14] MEDS: levoFLOXacin 250MG IV 250 MG in PREMIX BAG 1 BAG IVPB SCH (20:31)
[2017-12-14] MEDS: ALPRAZolam 0.25 MG TAB PO SCH (20:32)
[2017-12-14] MEDS: INSULIN DETEMIR 100 UNITS/ML PEN SUBCU SCH (21:38)
[2017-12-15] MEDS: IPRATROPIUM/ALBUTEROL 3 ML VIAL INH SCH ×6 (00:40→20:31)
[2017-12-15] MEDS: cefTRIAXone SODIUM 1 GM in SODIUM CHL 0.9% 50ML MIN-BAG+ 50 ML IVPB SCH ×2 (06:16→18:45)
[2017-12-15] MEDS: INSULIN LISPRO 100 UNITS/ML PEN SUBCU SCH ×4 (08:17→20:54)
[2017-12-15] MEDS: METOPROLOL TARTRATE 50 MG TAB PO SCH ×2 (08:18→17:08)
[2017-12-15] MEDS: FLUTICASONE/SALMETEROL 250/50 14 PUFF/17 GM INH INH SCH ×2 (08:49→20:31)
[2017-12-15] MEDS: LISINOPRIL 10 MG TAB PO SCH (10:28)
[2017-12-15] MEDS: OXYBUTYNIN CL 5 MG TAB PO SCH ×2 (10:28→20:53)
[2017-12-15] MEDS: APIXABAN 2.5 MG TAB PO SCH ×2 (10:28→20:53)
[2017-12-15] MEDS: PREGABALIN 75 MG CAP PO SCH ×2 (10:28→20:52)
[2017-12-15] MEDS: CHLORTHALIDONE 25 MG TAB PO SCH (10:28)
[2017-12-15] MEDS: ALLOPURINOL 100 MG TAB PO SCH (10:28)
[2017-12-15] MEDS: ASPIRIN (CHEWABLE) 81 MG TAB PO SCH (10:28)
[2017-12-15] MEDS: predniSONE 20 MG TAB PO SCH (10:28)
[2017-12-15] MEDS: diltiaZEM HCL CD 180 MG CAP PO SCH (10:29)
[2017-12-15] MEDS: CITALOPRAM HBR 20 MG TAB PO SCH (10:29)
[2017-12-15] MEDS: DIGOXIN 0.125 MG TAB PO SCH (12:32)
[2017-12-15] MEDS: NYSTATIN SUSPENSION 5 ML UD MT SCH ×3 (13:15→20:52)
--- NOTE | 2017-12-15 16:11 | PN ---
DATE: 12/15/17 SUPERVISING PHYSICIAN: Alejandro Spears M.D. SUBJECTIVE: The patient is sitting on the side of her bed. Complains of thrush in her mouth which she says she frequently gets after starting antibiotics. She also has some shortness of breath with exertion but it has improved since she came in. She still feels fatigued but no complaints of chest pain, nausea, vomiting, diarrhea or constipation. OBJECTIVE: VITAL SIGNS: She is afebrile, heart rate 83, blood pressure 151/68, respiratory rate 20, O2 sat is 95% on 2 liters nasal cannula. GENERAL: This is a 77 year-old female patient sitting in her hospital bed. She is in no acute distress. RESPIRATORY: Essentially clear to auscultation bilaterally but somewhat diminished at the bases. There is no additional wheezing noted. GASTROINTESTINAL: Abdomen is soft, non-tender, nondistended. Bowel sounds are positive. NEUROLOGIC: She is awake, alert and oriented times three. LABORATORY: Her blood sugars continue to be elevated in the 200 to 300 range. Final sputum culture shows normal antonella at 48 hours. Preliminary blood cultures show no growth after 48 hours. All other labs and films have been reviewed via the EMR. ASSESSMENT: 1. Severe sepsis secondary to left lower lobe pneumonia. 2. Acute on chronic hypoxemia with respiratory failure secondary to pneumonia as well as chronic obstructive pulmonary disease. 3. Chronic obstructive pulmonary disease exacerbation. 4. Streptococcal pharyngitis. 5. Diabetes mellitus, type 2. 6. Anemia. 7. History of atrial fibrillation with current controlled rate. 8. History of congestive heart failure without an acute exacerbation. PLAN: We will continue present supportive care. Continue to monitor her cultures. She is presently on p.o. steroids and we will continue those. Her blood sugars are improving. We will also need to monitor those closely. Will do lab and chest x-ray in the morning. I have also ordered some Nystatin swish and swallow. Continue encouraging good pulmonary hygiene. Hopefully she can be discharged in the next [address] Spears is the collaborating physician available for consultation. #[id number] [facility]
[2017-12-15] MEDS: SODIUM CHLORIDE 0.9% (FLUSH) 10 ML SYG IV SCH ×2 (16:31→20:55)
[2017-12-15] MEDS ORDERED: SODIUM CHL 0.9% 50ML MIN-BAG+ 50 ML IVPB ONE ×2 (17:04→20:09)
[2017-12-15] MEDS: IV SET AND CAP CHANGE INJ INJ SCH (17:04)
[2017-12-15] MEDS ORDERED: cefTRIAXone SODIUM 1 GM VIAL ONE ×2 (17:04→20:10)
[2017-12-15] MEDS ORDERED: levoFLOXacin 250MG IV 50 ML IVPB ONE (20:10)
[2017-12-15] MEDS: traZODone HCL 100 MG TAB PO SCH (20:52)
[2017-12-15] MEDS: ATORVASTATIN 20 MG TAB PO SCH (20:53)
[2017-12-15] MEDS: ALPRAZolam 0.25 MG TAB PO SCH (20:53)
[2017-12-15] MEDS: INSULIN DETEMIR 100 UNITS/ML PEN SUBCU SCH (20:54)
[2017-12-15] MEDS: levoFLOXacin 250MG IV 250 MG in PREMIX BAG 1 BAG IVPB SCH (20:55)
[2017-12-16] MEDS: cefTRIAXone SODIUM 1 GM in SODIUM CHL 0.9% 50ML MIN-BAG+ 50 ML IVPB SCH ×2 (06:11→18:33)
--- NOTE | 2017-12-16 06:53 | RAD ---
Chest 2 view on 12/16/2017 CLINICAL INDICATION: Pneumonia COMPARISON: 12/14/2017 FINDINGS: 2-lead left subclavian pacemaker is noted in place. There has been improvement in small left pleural effusion with trace effusion now remaining versus pleural thickening. There is mild left basilar atelectasis. There is evidence of calcified granulomatous disease in the chest. There is linear atelectasis or scarring in the upper lungs. Heart is upper limits normal for size. Vascular calcification is noted in the aorta. IMPRESSION: Improvement in left pleural effusion with otherwise no significant change. Electronically signed by: Ten Christopher 12/16/2017 6:51 AM CDT
[2017-12-16] MEDS: INSULIN LISPRO 100 UNITS/ML PEN SUBCU SCH ×4 (07:44→22:05)
[2017-12-16] MEDS: METOPROLOL TARTRATE 50 MG TAB PO SCH ×2 (07:49→17:48)
[2017-12-16] MEDS: FLUTICASONE/SALMETEROL 250/50 14 PUFF/17 GM INH INH SCH ×2 (08:14→20:17)
[2017-12-16] MEDS: IPRATROPIUM/ALBUTEROL 3 ML VIAL INH SCH ×4 (08:14→20:17)
[2017-12-16] MEDS: CITALOPRAM HBR 20 MG TAB PO SCH (09:14)
[2017-12-16] MEDS: CHLORTHALIDONE 25 MG TAB PO SCH (09:14)
[2017-12-16] MEDS: ALLOPURINOL 100 MG TAB PO SCH (09:14)
[2017-12-16] MEDS: predniSONE 20 MG TAB PO SCH (09:14)
[2017-12-16] MEDS: LISINOPRIL 10 MG TAB PO SCH (09:15)
[2017-12-16] MEDS: APIXABAN 2.5 MG TAB PO SCH ×2 (09:15→21:02)
[2017-12-16] MEDS: OXYBUTYNIN CL 5 MG TAB PO SCH ×2 (09:15→21:00)
[2017-12-16] MEDS: PREGABALIN 75 MG CAP PO SCH ×2 (09:15→20:59)
[2017-12-16] MEDS: ASPIRIN (CHEWABLE) 81 MG TAB PO SCH (09:15)
[2017-12-16] MEDS: SODIUM CHLORIDE 0.9% (FLUSH) 10 ML SYG IV SCH ×2 (09:17→22:35)
[2017-12-16] MEDS: NYSTATIN SUSPENSION 5 ML UD MT SCH ×4 (09:17→21:00)
[2017-12-16] MEDS: diltiaZEM HCL CD 180 MG CAP PO SCH (09:26)
[2017-12-16] MEDS: DIGOXIN 0.125 MG TAB PO SCH (12:32)
[2017-12-16] MEDS ORDERED: cefTRIAXone SODIUM 1 GM VIAL ONE (17:03)
[2017-12-16] MEDS ORDERED: SODIUM CHL 0.9% 50ML MIN-BAG+ 50 ML IVPB ONE (17:03)
[2017-12-16] MEDS ORDERED: INSULIN LISPRO 100 UNITS/ML PEN SUBCU ONE (18:59)
--- NOTE | 2017-12-16 19:54 | PN ---
DATE: 12/16/17 SUPERVISING PHYSICIAN: Alejandro Spears M.D. SUBJECTIVE: The patient is sitting on the side of her bed. Continues complaints of just feeling poorly as well as anxious about going home. Her children are pressuring her to move to [place] and she is very upset about that. We discussed that [facility] would be her home health agency after discharge. She agreed to that. OBJECTIVE: VITAL SIGNS: She is afebrile, heart rate 70, blood pressure 136/75, respiratory rate 20. O2 sat is 92% on 2 liters nasal cannula. RESPIRATORY: Scattered rhonchi throughout, somewhat diminished at the bases. She does have a few expiratory wheezes in the apices. CARDIAC: Regular rate and rhythm. GASTROINTESTINAL: Abdomen is soft, nondistended, non-tender. Bowel sounds are positive. EXTREMITIES: No cyanosis, clubbing or edema. NEUROLOGIC: She is awake, alert and oriented times three. LABORATORY: WBCs have finally normalized to 9.2 with hemoglobin 11.8 and hematocrit 35.5. Blood sugars have been quite elevated that have run between 168 to 374. Sodium has finally normalized to 135 with potassium 3.9, chloride 88, carbon dioxide 37, BUN 28, creatinine is slightly improved to 1.47. Magnesium 1.8. Preliminary blood cultures show no growth after 4 days. Chest x-ray shows improvement in left pleural effusion, otherwise no significant change. All other labs and films have been reviewed via the EMR. ASSESSMENT: 1. Severe sepsis secondary to left lower lobe pneumonia. 2. Acute on chronic hypoxemia with respiratory failure secondary to pneumonia as well as chronic obstructive pulmonary disease. 3. Chronic obstructive pulmonary disease with acute exacerbation. 4. Streptococcal pharyngitis. 5. Diabetes mellitus, type 2 with elevated blood sugars. 6. Anemia. 7. History of atrial fibrillation with controlled rate. 8. History of congestive heart failure without an acute exacerbation. 9. Acute renal insufficiency. 10. Electrolyte imbalance that may be due to her renal insufficiency. 11. Hyponatremia that has improved. PLAN: We will continue present supportive care. Her blood sugars have been quite elevated in spite of titrating down her steroids from IV to p.o. I have done a hemoglobin A1c tonight and I have increased Levemir to 10 units at bedtime. On discharge, she may have to have Dr. Simmons adjust her diabetic medications. I have also ordered lab, including a magnesium in the morning as well as a chest x-ray. She continues on her Ceftriaxone. She is finished with her azithromycin. Hopefully if her blood sugars level out she could be discharged home tomorrow. We will continue to monitor her closely and followup as needed. Dr. Spears is the collaborating physician available for consultation. #[id number] [facility]
[2017-12-16] MEDS: ATORVASTATIN 20 MG TAB PO SCH (21:00)
[2017-12-16] MEDS ORDERED: levoFLOXacin 500 MG TAB PO SCH (21:00)
[2017-12-16] MEDS: ALPRAZolam 0.25 MG TAB PO SCH (21:00)
[2017-12-16] MEDS ORDERED: INSULIN DETEMIR 100 UNITS/ML PEN SUBCU SCH (21:00)
[2017-12-16] MEDS: INSULIN DETEMIR 100 UNITS/ML PEN SUBCU SCH (21:01)
[2017-12-16] MEDS ORDERED: INSULIN DETEMIR 100 UNITS/ML PEN SUBCU ONE (21:19)
[2017-12-16] MEDS: traZODone HCL 100 MG TAB PO SCH (21:33)
[2017-12-17] MEDS ORDERED: cefTRIAXone SODIUM 1 GM VIAL ONE (06:05)
[2017-12-17] MEDS ORDERED: SODIUM CHL 0.9% 50ML MIN-BAG+ 50 ML IVPB ONE (06:05)
[2017-12-17] MEDS: cefTRIAXone SODIUM 1 GM in SODIUM CHL 0.9% 50ML MIN-BAG+ 50 ML IVPB SCH (06:14)
[2017-12-17] MEDS: FLUTICASONE/SALMETEROL 250/50 14 PUFF/17 GM INH INH SCH (07:19)
[2017-12-17] MEDS: IPRATROPIUM/ALBUTEROL 3 ML VIAL INH SCH ×2 (07:19→11:42)
--- NOTE | 2017-12-17 07:26 | RAD ---
EXAM: Two view chest. INDICATION: Pneumonia. COMPARISON: Chest x-ray: 12/16/2017. FINDINGS: Cardiac silhouette: Enlarged with a left chest wall pacemaker in place Melissa: Unremarkable. Lobar consolidation: None. Pleural effusion: None. Pneumothorax: None. Other: None. Bones: Unremarkable. Other: None. IMPRESSION: 1. No acute cardiopulmonary process. Electronically signed by: Carlos Qiu MD 12/17/2017 7:25 AM CDT Workstation: [id number]
[2017-12-17] MEDS: INSULIN LISPRO 100 UNITS/ML PEN SUBCU SCH ×2 (07:31→12:30)
[2017-12-17] MEDS: METOPROLOL TARTRATE 50 MG TAB PO SCH (07:32)
[2017-12-17] MEDS: CHLORTHALIDONE 25 MG TAB PO SCH (09:01)
[2017-12-17] MEDS: predniSONE 20 MG TAB PO SCH (09:01)
[2017-12-17] MEDS: CITALOPRAM HBR 20 MG TAB PO SCH (09:01)
[2017-12-17] MEDS: ASPIRIN (CHEWABLE) 81 MG TAB PO SCH (09:02)
[2017-12-17] MEDS: ALLOPURINOL 100 MG TAB PO SCH (09:02)
[2017-12-17] MEDS: OXYBUTYNIN CL 5 MG TAB PO SCH (09:02)
[2017-12-17] MEDS: LISINOPRIL 10 MG TAB PO SCH (09:02)
[2017-12-17] MEDS: NYSTATIN SUSPENSION 5 ML UD MT SCH ×2 (09:02→12:33)
[2017-12-17] MEDS: APIXABAN 2.5 MG TAB PO SCH (09:02)
[2017-12-17] MEDS: PREGABALIN 75 MG CAP PO SCH (09:02)
[2017-12-17] MEDS: diltiaZEM HCL CD 180 MG CAP PO SCH (09:03)
[2017-12-17] MEDS: SODIUM CHLORIDE 0.9% (FLUSH) 10 ML SYG IV SCH (09:05)
[2017-12-17 10:07] VITALS: BP 105/64; TEMP 98.5
[2017-12-17] MEDS: DIGOXIN 0.125 MG TAB PO SCH (12:30)
[2017-12-17 12:45] VITALS: O2SAT 96
[2017-12-17] MEDS ORDERED: INSULIN DETEMIR 100 UNITS/ML PEN SUBCU SCH (21:00)
--- NOTE | 2017-12-26 00:17 | DS ---
SUPERVISING PHYSICIAN: Tyrone Esquivel M.D. DISCHARGE DIAGNOSIS: 1. Severe sepsis secondary to left lower lobe pneumonia community acquired. 2. Acute on chronic hypoxemia with hypercapnia secondary to pneumonia and underlying chronic obstructive pulmonary disease. 3. Chronic obstructive pulmonary disease with acute exacerbation. 4. Streptococcal pharyngitis. 5. Diabetes mellitus, type 2. 6. Anemia with a normocytic/normochromic presentation, uncertain etiology. 7. History of atrial fibrillation with controlled ventricular rate. 8. History of congestive heart failure without an acute exacerbation with last echocardiogram noted to be in February 2016 with a grade 1 diastolic dysfunction and an ejection fraction of 60%. 9. Acute renal insufficiency. 10. Electrolyte imbalance to include hyponatremia, normalized prior to discharge. 11. Hyponatremia, resolved prior to discharge likely due to underlying pneumonia process. REASON FOR HOSPITALIZATION: Ms. Gastelum is a 77 year-old female patient who was admitted on 12/12/[address] Simmons's office. On the morning of admission she was in Dr. Simmons's office with subjective fever that had been going on for about a week associated with weakness and some shortness of breath. Nothing had seemed her symptoms any better and she thought that they would spontaneously go away, however due to the fact they did not improve in the office, she was worked up. She was found to have a sore throat with a positive Strep screen. At that point, she was showing hypoxic on room air at 83 % on initial workup in the clinic with a temperature of 100.4. She was then sent to the hospital for direct admission and was noted on admission to be in obvious respiratory distress with a history of chronic pulmonary disease utilizing oxygen on a regular basis, but was dyspneic and, according to her, more short of breath than her baseline. Blood gas analysis was completed as well as lab work showing an elevated white count along with hypoxemia as noted ABG and she was admitted for further treatment and evaluation with a chest x- ray that was noted in the office to show left lower pneumonia. LABORATORY: CBC on admission showed a leukocytosis of 15,600 with hemoglobin 11.1, hematocrit 34.0 with platelet count 298,000. Differential showed a left shift. After initiation of treatment prior to discharge, her white count normalized. Hemoglobin had stabilized st 11.8 and 35.5 with platelet count 361, 000. RBC indices showed a normochromic/normocytic presentation. She did have a left shift on admission. This had resolved prior to discharge. She had a sed rate that was elevated at 70. Her blood gas on admission showed a pH of 7.4 with PCO2 of 48, PO2 of 59, bicarb 32, satting 95% on 2 liters nasal cannula with a carboxyhemoglobin of 0.4. Chemistries on initial presentation from the clinic showed her to be hyponatremic with sodium 133, normal potassium at 3.9. She did have an elevated carbon dioxide of 38 with BUN 12, creatinine 1.27. Lactic acid initially was 2.6 with calcium 9.5. Liver functions showed to be within normal limits. She had a slightly elevated BNP of 149 after fluids and initiation of antibiotics for treatment of underlying pneumonia. Her lactic acid was 2.3 after repeat and prior to discharge. Her electrolytes had normalized with sodium 135, potassium 4.3, carbon dioxide continued to show elevation at 38, BUN 32, creatinine 1.57. Liver functions all were within normal limits. Hemoglobin studies showed to be elevated at 9.3. Blood sugars were very erratic and elevated up to 583, but with further management prior to discharge blood sugars had decreased and were ranging from 260 to 302, this was secondary to corticosteroid administration. MICROBIOLOGY: Sputum cultures submitted show normal antonella at 48 hours. She had 2 sets of blood cultures that remained negative after 5 days. RADIOLOGY: Chest x-ray on admission showed no evidence of acute cardiopulmonary disease per radiology interpretation. Multiple x-rays were completed through her admission phase and prior to discharge on 12/17/17 final x -rays per radiology interpretation showed continued no consolidations, no acute cardiopulmonary process. HOSPITAL COURSE: Ms. Gastelum was admitted to the hospital directly from the clinic for concerns for developing pneumonia as noted above. She was started on aggressive pulmonary hygiene and antibiotics to include Levaquin and Rocephin. She was given Solu-Medrol which did help with her symptoms but did result in significantly raising her blood sugars. Her blood sugars were controlled with insulin, Levemir, prior to discharge. On the morning of discharge, she was clinically showing to be improved and stable and was felt to be able to continue in the outpatient setting with continued treatment plan. PLAN: Ms. Gastelum was discharged on 12/17/17 with instructions to followup with Dr. Simmons in the following week. She was to take home medications as instructed and all new medications that included Cefdinir, Diflucan, Levaquin and Medrol Dosepak as directed. She was to monitor her blood sugars, cautioned to expect the blood sugars to be higher than usual while she was on steroids and to allow for this in her diet and to avoid high carbohydrate loads in order to help further control her blood sugars. She was told to return to the hospital should the patient have any concerning symptoms or notify Dr. Simmons. Diet at discharge included diabetic diet. Activity is increase as tolerated. New prescriptions at discharge included. 1. Cefdinir 300 mg twice daily, #10. 2. Diflucan 150 mg tablet 2 tablets, take 1 while on antibiotics and Medrol Dosepak for yeast infection if needed and then 1 tablet repeated if not improved. 3. Levaquin 500 mg daily for an additional 9 days. 4. Medrol Dosepak 4 mg as directed. All other medications were continued as previous to hospitalization. Discharge condition was stable and improved. #[id number] [facility]
== END 2017-12-17 13:00 | disposition home or self-care (01) | DRG 871 ==
LOC: MS 15:10 → OBSVTOIN 15:10
PROVIDERS: ADMIT Nurse Practitioner; ATTEND Nurse Practitioner Family
DX: A41.9 Sepsis, unspecified organism (principal); J18.9 Pneumonia, unspecified organism; I13.0 Hypertensive heart and chronic kidney disease with heart failure and stage 1 through stage 4 chronic kidney disease, or unspecified chronic kidney disease; I50.32 Chronic diastolic (congestive) heart failure; J96.21 Acute and chronic respiratory failure with hypoxia; J44.0 Chronic obstructive pulmonary disease with (acute) lower respiratory infection; J44.1 Chronic obstructive pulmonary disease with (acute) exacerbation; E87.1 Hypo-osmolality and hyponatremia; E78.5 Hyperlipidemia, unspecified; E11.22 Type 2 diabetes mellitus with diabetic chronic kidney disease; N18.9 Chronic kidney disease, unspecified; I48.2 Chronic atrial fibrillation; Z79.01 Long term (current) use of anticoagulants; M10.9 Gout, unspecified; F32.9 Major depressive disorder, single episode, unspecified; F41.9 Anxiety disorder, unspecified; Z87.820 Personal history of traumatic brain injury; Z95.0 Presence of cardiac pacemaker; Z79.82 Long term (current) use of aspirin; Z79.84 Long term (current) use of oral hypoglycemic drugs; Z87.891 Personal history of nicotine dependence; R65.20 Severe sepsis without septic shock; E11.65 Type 2 diabetes mellitus with hyperglycemia; J02.0 Streptococcal pharyngitis; D64.9 Anemia, unspecified; N28.9 Disorder of kidney and ureter, unspecified; T38.0X5A Adverse effect of glucocorticoids and synthetic analogues, initial encounter; Y92.230 Patient room in hospital as the place of occurrence of the external cause

== ENCOUNTER → 2017-12-21 | Outpatient (CLI) | payer OTHER | LOC: GMAM 17:38 | PROVIDERS: ATTEND Family Medicine | DX: J18.1 Lobar pneumonia, unspecified organism (principal) ==

== ENCOUNTER → 2018-06-01 | Outpatient (CLI) | payer OTHER | LOC: GMAM 16:37 | PROVIDERS: ATTEND Family Medicine | DX: I48.92 Unspecified atrial flutter (principal); E04.1 Nontoxic single thyroid nodule; E55.9 Vitamin D deficiency, unspecified; M10.00 Idiopathic gout, unspecified site ==

== ENCOUNTER → 2018-06-05 | Outpatient (CLI) | payer OTHER | LOC: GMAM 17:32 | PROVIDERS: ATTEND Family Medicine | DX: N39.498 Other specified urinary incontinence (principal) ==

== ENCOUNTER → 2018-07-20 | Outpatient (CLI) | payer OTHER ==
--- NOTE | 2018-07-20 18:55 | CT ---
EXAM DESCRIPTION: Chest w/o Contrast : Computed Tomography. CLINICAL HISTORY: 78 years Female UNEXPLAINED WEIGHT LOSS COMPARISON: CT scan abdomen and pelvis without IV contrast on this visit. CTA of the chest 05/06/2017. TECHNIQUE: Spiral-axial scans at 5 x 5 mm intervals through the lungs and thorax without IV contrast. 2.5 x 2.5 mm lung algorithm axial reconstructions. Coronal and sagittal 2.0 Mm reconstructions. Total Exam DLP: 1168.62 mGy-cm. This exam was performed according to our departmental dose-optimization program which includes automated exposure control, adjustment of the mA and/or kV according to patient size and/or use of iterative reconstruction technique; to reduce radiation dose to as low as reasonably achievable (ALARA). Nodule measurements under 10 mm are given as mean value of 3 axes diameters. FINDINGS: Lungs and large airways: Bilateral apical pleural thickening more on the right than the left apex. 3 mm calcified nodule posterior left apex on axial series image 25. Minimal parenchymal blebs in the upper lobes bilaterally. Stable since the prior study, taking into account differences in CT technique. Posterior pleural and parenchymal scarring in the apex of the superior segment right lower lobe, and posterior base of the right upper lobe altering the lung architecture and the course of the right major fissure. This was seen on the prior study. 6 small nodules less than 4 mm diameter within this tissue, lung axial images 44-51. Some of these are seen on the prior study. 4 mm solid nodule subpleural medial aspect of the superior segment of the right lower lobe on image 64. 7 mm solid nodule with pleural extension posteriorly and this segment on image 67. Partially visualized on the prior study.. 2 mm calcified nodule in the lateral subpleural right middle lobe on image 67. Minimal pleural parenchymal scarring in the right lung base with more seen in the left lung base, with large focal pleural thickening laterally just above the hemidiaphragm. 6 mm solid nodule with well-circumscribed vazquez in the left lower lobe on lung axial image 71. Stable since the prior study. 3 mm nodule in the medial aspect of the superior segment left lower lobe. Pleural thickening associated microcalcifications posterior lateral left upper lobe more pleural thickening and calcifications in the posterior left apex. Volume loss in the left upper lobe and left lower lobe compared to the contralateral right lobes. Stable since the prior study.. Pleural spaces: Bilateral scarring and pleural thickening and focal pleural thickening as described with no effusion or pneumothorax bilaterally. Mediastinum and Melissa: Evaluation limited due to lack of IV contrast small lymph nodes in the mediastinum and azygos region with no significant change since the prior study. Great vessels and Heart: Pacing wires in the right atrium and right ventricle. Coronary artery calcifications. Atherosclerotic calcification in the aortic arch, descending thoracic aorta, and proximal brachiocephalic vessels. Soft tissues of neck base, axillae, and chest wall: Evaluation limited due to lack of IV contrast. Heterogeneous thyroid gland. Small axillary lymph nodes bilaterally. Upper abdomen: Please see abdominal pelvic CT scan report on this visit. Osseous structures: Bilateral glenohumeral joint arthrosis. Prior fracture and deformity of the body of the right scapula, with upper extent at the lower aspect of the scapular spine. Spondylosis at multiple levels of the thoracic spine. Arthrosis left sternoclavicular joint. No blastic or lytic lesions. IMPRESSION: 1. Emphysematous changes in the lungs bilaterally with multiple regions of scarring associated with the pleura and bilateral upper lobes at the margins with the superior segments of the lower lobes with bilateral thickened septa and bilateral parenchymal calcifications. No acute infiltrates compared to the prior study. 2. 7 mm semisolid nodule in the right lower lobe with pleural extension was partially visualized on the prior study. 6 mm solid nodule in the left lower lobe stable since the prior study. Recommend CT follow-up in 3-6 month interval, based upon [employer] Best Practice recommendations and Fleischner Society 2017 recommendations for imaging follow-up of multiple solid and part solid nodules. Please see below.* *2017 Fleischner Society Recommendations for Subsolid Lung Nodule Follow-Up based on size (average of long- and short-axis diameters). Use most suspicious nodule for followup. Multiple < 6mm: CT at 3-6 months. If stable consider CT at 2 and 4 years. > or = 6mm: CT at 3-6 months. Subsequent management based on the most suspicious nodule(s). Electronically signed by: Maximo Shukla MD 07/20/2018 6:54 PM FIG BAR MACHINE OPERATOR
--- NOTE | 2018-07-20 19:21 | CT ---
EXAM DESCRIPTION: Abdomen/Pelvis w/o Contrast: Computed Tomography. CLINICAL HISTORY: 78 years Female UNEXPLAINED WEIGHT LOSS COMPARISON: CT scan of the lungs without contrast on the same visit. TECHNIQUE: Spiral-axial scans 5 x 5 mm intervals through the abdomen and pelvis without oral or IV contrast. Coronal and sagittal 2 x 2 mm reconstructions. Total Exam DLP: 1168.62 mGy-cm. This exam was performed according to our departmental CT dose-optimization program which includes automated exposure control, adjustment of the mA and/or kV according to patient size and/or use of iterative reconstruction technique; to reduce radiation dose to as low as reasonably achievable (ALARA). FINDINGS: Lung bases and pleura: Please see exam and report on chest CT scan on this visit. Liver, stomach, spleen, and adrenal glands: Long axis of the right hepatic lobe is 16.7 cm. No focal lesions. Smooth capsule with no ascites. Enlargement of the left adrenal gland 1.5 x 1.3 cm with Hounsfield density -12. Central right adrenal gland enlargement 1 x 1 cm with Hounsfield density -5. Normal density of the surrounding fat. Stomach and other organs negative. Pancreas, Gallbladder, and Ducts: Gallbladder visualized. Duct negative. Pancreas unremarkable. Kidneys and Ureters: Possible tiny stone less than 2 mm diameter in the inferior right collecting system. No hydronephrosis bilaterally. Bilateral perinephric stranding is symmetric. 2.5 mm stone in the distal left ureter at the UVJ, focal distention 1 cm proximal, but the more proximal left ureter not appearing obstructed and no definite periureteral edema. Mesentery: No significant stranding fascial thickening free air or free fluid. Aorta: Moderate atherosclerotic calcification including the origins of the great vessels with narrowing of the distal lumen and narrowing of the proximal lumens of the common iliac arteries. Small Bowel: No distention or air-fluid levels. Terminal Ileum/Cecum: Moderate amount of fecal material in the cecum. Small lateral appendix. No abnormal fatty stranding. Colon: Moderate fecal material in ascending colon also distal transverse and descending colon, and the rectosigmoid which is moderately redundant. Diverticula in the sigmoid colon but no complications.. Pelvic Organs: No radiodense stones in the urinary bladder. Vaginal cuff is unremarkable. No free fluid. Spine and Bony Pelvis: Spondylosis L5-S1 and minimal spondylosis in the lower thoracic spine. Thoracolumbar levoscoliosis and lumbosacral dextroscoliosis. Abdominal Wall/Back Soft Tissues: Thinning of the anterior abdominal pelvic wall with focal bulges from bowel segments. IMPRESSION: 1. Study limited due to lack of IV contrast. No obvious peritoneal or retroperitoneal mass. No peritoneal fluid or free air. Mild enlargement of the liver. 2. Tiny stone approximately 2.5 mm diameter in the left UVJ with minimal dilation of the immediate proximal ureter but not significantly dilated more proximally and no left hydronephrosis. Suggestion of a tiny stone in the inferior right collecting system with no hydronephrosis. 3. Minimal enlargement of the bilateral adrenal glands with fatty density suggestive of adrenal adenomas. No further imaging follow-up is recommended. 4. Constipation involving most of the colon. No significant dilation. Distal diverticulosis but no evidence of inflammation. 5. Spondylosis L5-S1 and possibly significant canal narrowing. Spondylosis thoracolumbar and thoracic segments. Electronically signed by: Maximo Shukla MD 07/20/2018 7:19 PM [employer] [employer]
--- NOTE | 2018-07-21 09:28 | MAM ---
EXAM DESCRIPTION: 3D Screening BILATERAL : Digital Mammography. CLINICAL HISTORY: 78 years Female SCREEN . No complaints. No personal or family history of breast cancer. Childbirth. Postmenopausal. No HRT. Lifetime risk of developing breast cancer (Tyrer-Cuzick model)(%): Not calculated COMPARISON: 2-D digital screening bilateral mammography 11/16/2016.. TECHNIQUE: Bilateral CC and MLO projection full-field images, digital tomosynthesis mammographic technique. Bilateral digital 2-D full-field MLO images. CAD not available for tomosynthesis or 2-D images. FINDINGS: The breast parenchymal density pattern is: Scattered areas of fibroglandular density. No skin thickening or nipple retraction. Solitary microcalcifications left breast. Minimal architectural asymmetry in the mid third right breast near the posterior nipple line which is stable. No new focal, stellate mass or density, focal asymmetry , and no suspicious microcalcifications bilaterally. Stable mammograms compared to prior study. Taking into account, differences in mammographic technique. IMPRESSION: Benign exam. BIRAD CATEGORY: 2 BENIGN FINDINGS. RECOMMENDATIONS: FOLLOW UP: Routine digital bilateral mammographic screening, one year interval from June 2018. Written communication explaining the IMPRESSION and follow-up, will be mailed to the patient and referring health care provider. According to the [employer], yearly mammograms are recommended starting at age 40 and continuing as long as a woman is in good health. Any breast change noted on a breast self-exam should be reported promptly to the patient's healthcare provider. Breast MRI is recommended for women with an approximately 20-25% or greater lifetime risk of breast cancer, including women with a strong family history of breast or ovarian cancer and women who have been treated for Hodgkin's disease. A negative mammographic report should not delay tissue diagnosis in patients with significant clinical history or physical findings. Extremely dense breast tissue limits the sensitivity of digital mammography. Electronically signed by: Maximo Shukla MD 07/21/2018 9:26 AM CONTROL ROOM HELPER
== END ==
LOC: CT 08:36
PROVIDERS: ATTEND Family Medicine
DX: Z12.31 Encounter for screening mammogram for malignant neoplasm of breast (principal); R63.4 Abnormal weight loss; N20.1 Calculus of ureter; K59.00 Constipation, unspecified; M47.897 Other spondylosis, lumbosacral region; E27.9 Disorder of adrenal gland, unspecified

== ENCOUNTER → 2018-11-16 | Outpatient (CLI) | payer OTHER ==
--- NOTE | 2018-11-17 15:19 | CT ---
CT left hip without contrast INDICATION: Hip pain x2 months rheumatoid arthritis TECHNIQUE: Helical CT images left hip with multiplanar reformats This exam was performed according to our departmental dose-optimization program, which includes automated exposure control, adjustment of the mA and/or kV according to patient size and/or use of iterative reconstruction technique. FINDINGS: Vacuum phenomenon degenerative left sacroiliac joint. No aggressive destructive process large effusion or marked synovitis noted left hip. No acute fracture. There are subchondral cysts most pronounced in the superior and anterior superior acetabulum and to a lesser extent inferior acetabulum and femoral head near the fovea. Mild reactive-appearing sclerosis in the femoral head without collapse. No definite osteonecrosis. Small marginal osteophytes. Joint space narrowing is most notable superior-medial. This is primarily osteoarthrosis although pre-existing inflammatory arthritis is a consideration given the clinical history and the axial migration of the joint space narrowing. No evidence of active erosion. Slight irregularity and osteophyte formation of the fovea. IMPRESSION: Osteoarthrosis left hip No evidence of active erosions large effusion or marked synovitis Vacuum phenomenon left sacroiliac joint degenerative in appearance Electronically signed by: Jatin Suazo MD 11/17/2018 3:16 PM CDT
== END ==
LOC: MRI 14:07
PROVIDERS: ATTEND Family Medicine
DX: M25.552 Pain in left hip (principal); M16.11 Unilateral primary osteoarthritis, right hip

== ENCOUNTER 2018-12-13 10:15 | Day surgery (SDC) | payer OTHER ==
[~2018-12-13 10:15] MED LIST: BUPIVACAINE 0.25% INJ 30 ML VIAL INJ ONE; LACTATED RINGERS 1,000 ML ONE; LIDOCAINE 1% 10 ML VIAL INJ ONE; LIDOCAINE 1% W/ EPINEPHRINE 20 ML VIAL INJ ONE; PROPOFOL 200 MG/20 ML VIAL IV ONE; SODIUM CHL 0.9% 50ML MIN-BAG+ 0 ML IVPB ONE; ceFAZolin SODIUM 1 GM VIAL ONE; methylPREDNISolone ACETATE 80 MG/ML VIAL ONE
[2018-12-13] MEDS ORDERED: fentaNYL CITRATE INJ 50 MCG/ML AMP ONE (10:51)
[2018-12-13] MEDS ORDERED: MIDAZOLAM INJ 2 MG/2 ML VIAL ONE (10:51)
[2018-12-13 12:28] VITALS: BP 167/56; TEMP 96.6; O2SAT 99
--- NOTE | 2018-12-14 10:30 | RAD ---
EXAM DESCRIPTION: Fluoroscopy Up to 1Hr CLINICAL HISTORY: 78 years Female, LEFT HIP INJECTION COMPARISON: CT left hip 11/16/2018. IMPRESSION: Multiple intraoperative fluoroscopic images were saved for the benefit of the surgeon. Single image of the left hip saved for the patient's permanent medical record. Please see procedure report for full details. Fluoroscopy time: 9 seconds Fluoroscopic images: 1 Electronically signed by: Rogelio Cano MD 12/14/2018 10:28 AM CDT
--- NOTE | 2018-12-20 14:05 | OP ---
DATE OF PROCEDURE: 12/13/18 PREOPERATIVE DIAGNOSIS: 1. Hip arthritis. POSTOPERATIVE DIAGNOSIS: 1. Hip arthritis. PROCEDURE: 1. Left intraarticular hip injection. SURGEON: Guido Wilder MD. TELEX OPERATOR: Mxaimo Richardson CST, SA-C. ANESTHESIA: Conscious sedation. COMPLICATIONS: None. FINDINGS: Osteoarthritis of the hip. INDICATION: Ms. Gastelum has a history of severe pain associated with arthritis. Because of the pain and failure of conservative measures, she has requested operative intervention. After discussing the risks, benefits and alternatives to that, the patient has given informed consent for that. PROCEDURE: The patient was brought to the Operating Room and placed in supine position. Conscious sedation was administered and the leg was flexed, abducted and externally rotated. The groin was prepped and fluoroscopic imaging was used to confirm needle placement into the hip joint through a medial portal. Once placement had been confirmed, a combination of lidocaine and Depo-Medrol were injected into the joint. After injection, the needle was withdrawn. Pressure was held on the injection site. A sterile band-aid was placed. The patient was then taken back to the Day Surgery Unit. POSTOPERATIVE PLAN: The patient will be doing range of motion and weight-bearing as tolerated. The patient will followup with us in about 2 weeks. #[id number] [facility]
== END 2018-12-13 12:25 | disposition home or self-care (01) ==
LOC: AMB 10:15
PROVIDERS: ATTEND Orthopaedic Surgery
DX: M16.12 Unilateral primary osteoarthritis, left hip (principal); Z79.84 Long term (current) use of oral hypoglycemic drugs; Z79.899 Other long term (current) drug therapy
CPT/HCPCS: 01200; 20610; 76000; 82948; 87070; J1030; J2250; J3010; J3490; J7120

== ENCOUNTER → 2019-04-10 | Outpatient (CLI) | payer MEDICARE, OTHER ==
--- NOTE | 2019-04-11 08:13 | CT ---
EXAM DESCRIPTION: Abdomen/Pelvis w/wo Contrast: Computed Tomography. CLINICAL HISTORY: ABNORMAL WEIGHT LOSS COMPARISON: CT scan of the chest with IV contrast on this visit; CT scan of the abdomen and pelvis without contrast 07/20/2018. TECHNIQUE: Spiral-axial scans at 5 x 5 mm intervals through the abdomen and pelvis before and after 75 mL Optiray 320 nonionic IV contrast. No oral contrast. Coronal and sagittal 2.0 mm reconstructions. 5 mm Delayed helical-axial scans, liver through the pubic symphysis. No adverse reactions. Total Exam DLP 1721.76 mGy - cm. This exam was performed according to our departmental CT dose-optimization program which includes automated exposure control, adjustment of the mA and/or kV according to patient size and/or use of iterative reconstruction technique; to reduce radiation dose to as low as reasonably achievable (ALARA). FINDINGS: Lung bases and pleura: Please see chest CT scan examination and report today. Liver, Stomach, Spleen, Adrenal Glands: Small sliding hiatal hernia. Focal enlargement of the left adrenal gland measuring 1.4 x 1.1 cm. Hounsfield density pre and postcontrast is between +12 and -8, consistent with a cyst or adenoma. Stable since the prior study. Other organs unremarkable. Pancreas, Gallbladder, Ducts: Gallbladder visualized. Negative. Kidneys and Ureters: Slight lobulation of the renal capsules with normal size for age (less than 8 cm long axis). No hydronephrosis. Bilateral pararenal stranding is stable and most likely age-related. Mesentery: No free air or fluid. Aorta: Moderate atherosclerotic calcification including proximal major branch vessels. Mild ectasia. Small Bowel: Negative. Terminal Ileum/Cecum: Surgical clips on the inferior cecum. Normal caliber. Colon: Moderate redundancy of sigmoid colon containing mostly gas. Scattered diverticula with no complications. Proximal and mid colon gas and fecal matter. No inflammatory changes. Pelvic Organs: Urinary bladder moderately distended with wall thickening. No free fluid. Calcifications. Otherwise negative. Unchanged.. Spine and Bony Pelvis: Advanced spondylosis and disc calcification at L5-S1 with narrowing of the canal and bilateral foramina. Stable. Abdominal Wall/Back Soft Tissues: Unremarkable. IMPRESSION: 1. Left adrenal adenoma or cyst, stable since the prior study. 2. Redundant sigmoid with diverticulosis but no complications. No constipation compared to the prior study. 3. Minimal urinary bladder wall thickening unchanged since the prior study. Advanced spondylosis and disc calcification at L5-S1 stable since the prior study. Electronically signed by: Maximo Shukla MD 04/11/2019 8:11 AM CDT
--- NOTE | 2019-04-11 09:55 | CT ---
EXAM DESCRIPTION: Chest w/wo Contrast : Computed Tomography. CLINICAL HISTORY: 79 years Female ABNORMAL WEIGHT LOSS COMPARISON: CT scan of the chest without contrast 07/20/2018. TECHNIQUE: Spiral-axial scans at 5 mm intervals through the lungs and thorax without IV contrast. 2.5 x 5 mm lung algorithm axial reconstructions. Coronal and sagittal 2.0 Mm reconstructions. No adverse reactions. Total Exam DLP: 664.64 mGy-cm. This exam was performed according to our departmental dose-optimization program which includes automated exposure control, adjustment of the mA and/or kV according to patient size and/or use of iterative reconstruction technique; to reduce radiation dose to as low as reasonably achievable (ALARA). Nodule measurements under 10 mm are given as mean value of 3 axes diameters. FINDINGS: Lungs and large airways: Apical pleural scarring in the left upper lobe with a 5 mm calcified nodule laterally stable. Smaller nodules and calcifications in the left apex also stable, including a calcified nodule posterior right upper lobe. Subpleural or pleural scarring with calcification lateral left upper lobe just above the lingula unchanged. Stable apical pleural scarring in the inferior lingula and in the anterior superior segment left lower lobe. Multiple groundglass densities in the right upper lobe some consolidation and some focal have increased since the prior study with stable apical parenchymal pleural scarring. Multiple lateral subpleural new groundglass nodules posterior right upper lobe on images 8/40-45. Also in the lateral segment right middle lobe images 56-58. New focal groundglass nodules less than 5 mm in diameter in the right lower lobe predominantly in the superior segment. Groundglass nodule medially in the recess posterior to the right heart border measures 6.3 mm on axial image 79. Parenchymal pleural scarring right lower lobe. Stable semisolid nodule superior segment right upper lobe with spiculated margins measures 5.5 mm with a posterior pleural attachment axial series images 8/62-64. Pleural spaces: Bilateral pleural-parenchymal scarring and scattered focal pleural thickening. Mediastinum and Melissa: Superior and mid mediastinal nodes are stable including a heterogeneously dense azygous node measuring 1.4 x 1.4 cm. No new dominant solid masses. Great vessels and Heart: Pacemaker power pack upper anterior left chest. Pacing leads right atrium and right ventricle stable. Coronary artery calcifications and atherosclerotic calcifications in the aorta unchanged. Soft tissues of neck base, axillae, and chest wall: 1.2 x 0.9 cm nonenhancing nodule right thyroid lobe. Right lobe larger than left. Otherwise unremarkable. Upper abdomen: Please see abdominal CT scan examination and report on this visit. Osseous structures: Multiple levels of mild endplate spondylosis. Arthrosis in the sternomanubrial junction and in the bilateral first costochondral junctions. Mild arthrosis bilateral glenohumeral joints more on the right. No lytic or blastic lesions. IMPRESSION: 1. New confluent and nodular groundglass infiltrates and nodules involving the right upper lobe predominantly but also the middle lobe and lower lobe. This could represent recurrence of a chronic pulmonary inflammatory infectious process or new onset. This can be seen and atypical pneumonias, immunosuppressed pneumonias, chronic infiltrative lung disease, respiratory bronchiolitis. Multiple pulmonary nodules. Most severe: 5.0 mm ground glass pulmonary nodule. Recommend a non-contrast Chest CT at 3-6 months. If stable, consider follow-up non-contrast Chest CTs at 2 and 4 years. These guidelines do not apply to immunocompromised patients and patients with cancer. Follow up in patients with significant comorbidities as clinically warranted. For lung cancer screening, adhere to Lung-RADS guidelines. Reference: Radiology. 2017; 284(1):228-43. 2. 1.2 cm incidental thyroid nodule. No follow-up imaging is recommended. Reference: J Am Yefri Radiol. 2015 Feb;12(2): 143-50. 3. Breast parenchyma incompletely visualized. Confirm Patient scheduled for repeat screening mammography in June 2019. Electronically signed by: Maximo Shukla MD 04/11/2019 9:53 AM CDT
== END ==
LOC: CT 10:54
PROVIDERS: ATTEND Family Medicine
DX: R63.4 Abnormal weight loss (principal); R91.8 Other nonspecific abnormal finding of lung field; E27.9 Disorder of adrenal gland, unspecified; K57.30 Diverticulosis of large intestine without perforation or abscess without bleeding; N32.9 Bladder disorder, unspecified; M47.897 Other spondylosis, lumbosacral region

== ENCOUNTER → 2020-01-22 | Outpatient (CLI) | payer MEDICARE | LOC: GMAM 16:34 | PROVIDERS: ATTEND Family Medicine | DX: R71.8 Other abnormality of red blood cells (principal); N18.3 Chronic kidney disease, stage 3 (moderate); R30.0 Dysuria ==